=== PATIENT | female | born 1955 | race African-American/Black ===

== ENCOUNTER 2019-03-14 17:56 | Inpatient (IN) | payer OTHER ==
[~2019-03-14] VITALS: Ht 157.5 cm; Wt 78.9 kg
[~2019-03-14 17:56] MED LIST: DOCU-138 PO; FERR-63 PO; FURO-152 PO; GABA-531 PO; METF500T PO; POTA-9 PO; WARF2TAB57 PO
[2019-03-14] MEDS ORDERED: MORPHINE SULFATE 4 MG/ML CPJ (NOT FOR IM USE) IV STA (22:44)
[2019-03-14] MEDS ORDERED: ONDANSETRON HCL 4MG/2ML INJ IV STA (22:44)
[2019-03-14] MEDS ORDERED: FUROSEMIDE 40MG/4ML VIAL IV ONE (22:45)
[2019-03-14 23:07] LABS: CLARITY URINE CLOUDY (CLEAR); COLOR URINE DARK YELLOW (YELLOW); KETONES URINE TRACE (NEGATIVE); LEUKOCYTE ESTERASE URINE 1+ (NEGATIVE); NITRITE URINE NEGATIVE (NEGATIVE); OCCULT BLOOD URINE 3+ (NEGATIVE); PH URINE 5.5 (4.5-8.0); PROTEIN URINE 3+ (NEGATIVE); SPECIFIC GRAVITY URINE 1.025 (1.005-1.030)
[2019-03-14 23:11] LABS: BASOPHILS % 1.3 % (0.0-2.0); CHLORIDE 111 mEq/L (98-107); EOSINOPHILS % 9.1 % (0.0-5.0); HEMATOCRIT. 31.2 % (36.0-48.0); HEMOGLOBIN. 10.8 g/dL (12.0-16.0); LYMPHOCYTES % 34.6 % (20.0-50.0); MEAN CORPUSCULAR HEMOGLOBIN 31.4 pg (28.0-32.0); MEAN PLATELET VOLUME 8.6 fl (7.4-10.4); MONOCYTES % 12.1 % (2.0-8.0); NEUTROPHILS % 42.9 % (40.0-76.0); PLATELET 59 x1000/uL (130-400); RED BLOOD CELL COUNT 3.43 mill/uL (4.2-5.4); RED CELL DISTRIBUTION WIDTH 15.3 % (11.6-14.6)
[2019-03-14 23:21] LABS: INR 1.1; PROTHROMBIN TIME 11.4 sec (9.6-11.0)
[2019-03-14] MEDS ORDERED: CEFTRIAXONE 1 G PREMIX 50 ML IV ONE (23:30)
[2019-03-15] MEDS ORDERED: DIPHENHYDRAMINE 50MG/ML VIAL IV ONE (00:15)
[2019-03-15 04:00] VITALS: BP 137/74
[2019-03-15] MEDS ORDERED: CLONIDINE 0.1MG TABLET PO PRN (06:00)
[2019-03-15] MEDS ORDERED: DEXTROSE 50% WATER 50ML SYRINGE IV PRN (06:30)
[2019-03-15] MEDS: BLOOD SUGAR DIAGNOSTIC STRIP TEST SCH ×4 (06:45→20:39)
[2019-03-15] MEDS: INSULIN LISPRO 100 UNITS/ML SUBCUT SCH ×4 (07:15→20:43)
[2019-03-15] MEDS ORDERED: ONDANSETRON HCL 4MG/2ML INJ IV PRN (07:45)
[2019-03-15 08:00] VITALS: BP 114/73
[2019-03-15] MEDS: GABAPENTIN 300MG CAPSULE PO SCH (08:53)
[2019-03-15] MEDS: FUROSEMIDE 40MG TABLET PO SCH ×2 (08:53→17:28)
[2019-03-15] MEDS: POTASSIUM CHLORIDE 10MEQ TABLET SR PO SCH (08:53)
[2019-03-15] MEDS: SPIRONOLACTONE 50MG TABLET PO SCH (08:53)
[2019-03-15] MEDS: DOCUSATE SODIUM 100MG CAPSULE PO SCH (08:53)
[2019-03-15] MEDS: MORPHINE SULFATE 4 MG/ML CPJ (NOT FOR IM USE) IV PRN ×3 (08:54→23:12)
[2019-03-15] MEDS ORDERED: MEDICATION NOT ON FORMULARY EA (Docusate Sodium (Colace) 100 MG) PO SCH (09:00)
[2019-03-15] MEDS ORDERED: MEDICATION NOT ON FORMULARY EA (Gabapentin 300 MG) PO SCH (09:00)
[2019-03-15] MEDS ORDERED: FUROSEMIDE 20MG TABLET PO SCH (09:00)
[2019-03-15] MEDS ORDERED: MEDICATION NOT ON FORMULARY EA (Furosemide (Lasix) 20 MG) PO SCH (09:00)
[2019-03-15] MEDS ORDERED: POTASSIUM CHLORIDE 10MEQ TABLET SR PO SCH (09:00)
[2019-03-15 09:49] LABS: HEMATOCRIT 28.7 % (36.0-48.0); HEMOGLOBIN 9.8 g/dL (12.0-16.0); MEAN CORPUSCULAR HEMOGLOBIN 31.4 pg (28.0-32.0); MEAN CORPUSCULAR VOLUME 91.6 fL (81.0-99.0); PLATELET 54 x1000/uL (130-400); RED BLOOD CELL COUNT 3.13 mill/uL (4.2-5.4); RED CELL DISTRIBUTION WIDTH 15.7 % (11.6-14.6)
[2019-03-15 10:13] LABS: CHLORIDE 108 mEq/L (98-107)
[2019-03-15] MEDS ORDERED: LACTULOSE 20G/30ML UDC PO PRN (12:00)
[2019-03-15] MEDS: DIPHENHYDRAMINE 50MG/ML VIAL IV PRN ×2 (12:46→23:33)
[2019-03-15 16:00] VITALS: BP 117/54
[2019-03-15 16:44] LABS: INR 1.1; PROTHROMBIN TIME 11.8 sec (9.6-11.0)
[2019-03-15] MEDS ORDERED: WARFARIN SODIUM 2MG TABLET PO SCH (18:00)
[2019-03-15 20:00] VITALS: BP 130/67
[2019-03-15] MEDS: AMLODIPINE 5MG TABLET PO SCH (20:39)
[2019-03-15] MEDS ORDERED: ZOLPIDEM TARTRATE 5MG TABLET PO PRN (21:00)
[2019-03-16] VITALS: BP 99/63
[2019-03-16] MEDS ORDERED: CEFTRIAXONE 1 G PREMIX 50 ML IV SCH
[2019-03-16 04:00] VITALS: BP 122/57
[2019-03-16 05:57] LABS: CHLORIDE 106 mEq/L (98-107)
[2019-03-16] MEDS: BLOOD SUGAR DIAGNOSTIC STRIP TEST SCH ×3 (06:20→16:57)
[2019-03-16] MEDS: FUROSEMIDE 40MG TABLET PO SCH ×2 (06:20→16:56)
[2019-03-16] MEDS: INSULIN LISPRO 100 UNITS/ML SUBCUT SCH ×2 (06:29→11:54)
[2019-03-16 07:29] LABS: BASOPHILS % 0.8 % (0.0-2.0); HEMATOCRIT. 27.1 % (36.0-48.0); HEMOGLOBIN. 9.4 g/dL (12.0-16.0); LYMPHOCYTES % 34.7 % (20.0-50.0); MEAN CORPUSCULAR HEMOGLOBIN 31.5 pg (28.0-32.0); MEAN CORPUSCULAR VOLUME 91.1 fL (81.0-99.0); MEAN PLATELET VOLUME 9.4 fl (7.4-10.4); MONOCYTES % 14.9 % (2.0-8.0); NEUTROPHILS % 39.6 % (40.0-76.0); PLATELET 53 x1000/uL (130-400); RED BLOOD CELL COUNT 2.97 mill/uL (4.2-5.4); RED CELL DISTRIBUTION WIDTH 15.1 % (11.6-14.6)
[2019-03-16 08:00] VITALS: BP 121/53
[2019-03-16] MEDS: AMLODIPINE 5MG TABLET PO SCH (09:00)
[2019-03-16] MEDS ORDERED: SODIUM BICARBONATE 4% (2.4MEQ) 5ML VIAL IV ONE (09:24)
[2019-03-16] MEDS: POTASSIUM CHLORIDE 10MEQ TABLET SR PO SCH (09:28)
[2019-03-16] MEDS: GABAPENTIN 300MG CAPSULE PO SCH (09:28)
[2019-03-16] MEDS: DOCUSATE SODIUM 100MG CAPSULE PO SCH (09:28)
[2019-03-16] MEDS: SPIRONOLACTONE 50MG TABLET PO SCH (09:28)
[2019-03-16] MEDS: MORPHINE SULFATE 4 MG/ML CPJ (NOT FOR IM USE) IV PRN (09:32)
[2019-03-16 11:26] LABS: *AMPHETAMINES SCREEN URINE NEGATIVE (NEGATIVE); *BARBITURATES SCREEN URINE NEGATIVE (NEGATIVE); *BENZODIAZEPINES SCREEN URINE NEGATIVE (NEGATIVE); *COCAINE SCREEN URINE NEGATIVE (NEGATIVE); METHADONE URINE SCREEN NEGATIVE (NEGATIVE); OPIATES URINE SCREEN PRESUMTIVE POSITIVE (NEGATIVE); PHENCYCLIDINE URINE SCREEN NEGATIVE (NEGATIVE)
[2019-03-16 11:27] LABS: CANNABINOID URINE SCREEN NEGATIVE (NEGATIVE)
[2019-03-16] MEDS ORDERED: HYDROCODONE/ACETAMINOPHEN 5/325MG TABLET PO PRN (11:45)
[2019-03-16 12:00] VITALS: BP 118/60
[2019-03-16 16:00] VITALS: BP 111/58
[2019-03-16 17:04] VITALS: BP 111/58
== END 2019-03-16 18:05 | disposition home or self-care (01) ==
LOC: ER 17:56 → 5WST 03-15 00:43 → EDBEDREQTM 03-15 00:45 → EDBEDREQ 03-15 00:45 → ENRESERV 03-15 02:50
PROVIDERS: ADMIT Internal Medicine; ATTEND Internal Medicine
PROC: 0W9G3ZZ Drainage of Peritoneal Cavity, Percutaneous Approach (ICD-10-PCS; principal; 2019-03-16)
DX: R18.8 Other ascites (principal); E43 Unspecified severe protein-calorie malnutrition; D61.818 Other pancytopenia; B19.20 Unspecified viral hepatitis C without hepatic coma; E11.9 Type 2 diabetes mellitus without complications; D64.9 Anemia, unspecified; K74.60 Unspecified cirrhosis of liver; I10 Essential (primary) hypertension; N39.0 Urinary tract infection, site not specified; Z86.718 Personal history of other venous thrombosis and embolism; Z88.8 Allergy status to other drugs, medicaments and biological substances; Z79.899 Other long term (current) drug therapy; Z79.01 Long term (current) use of anticoagulants; Z68.31 Body mass index [BMI] 31.0-31.9, adult
CPT/HCPCS: 36415; 49083; 71045; 72170; 80048; 80305; 82962; 83880; 84484; 85027; 93005; 93970; 96365; 96375; 99285; J0696; J1200; J1940; J2270; J2405; J3490; J7050

== ENCOUNTER 2021-03-30 17:07 | Inpatient (IN) | payer MEDICAID, OTHER ==
[~2021-03-30] VITALS: Ht 157.5 cm; Wt 82.1 kg
[~2021-03-30 17:07] MED LIST changes: -GABA-531 PO; +GABA-532 PO; -WARF2TAB57 PO
[2021-03-30 20:30] LABS: BASOPHILS % 1.9 % (0.0-2.0); CHLORIDE 112 mEq/L (98-107); EOSINOPHILS % 11.7 % (0.0-5.0); HEMATOCRIT. 32.1 % (36.0-48.0); HEMOGLOBIN. 11.3 g/dL (12.0-16.0); MEAN CORPUSCULAR HEMOGLOBIN 31.4 pg (28.0-32.0); MEAN CORPUSCULAR VOLUME 89.1 fL (81.0-99.0); MEAN PLATELET VOLUME 7.8 fl (7.4-10.4); MONOCYTES % 10.1 % (2.0-8.0); NEUTROPHILS % 43.3 % (40.0-76.0); PLATELET 75 x1000/uL (130-400); RED BLOOD CELL COUNT 3.61 mill/uL (4.2-5.4); RED CELL DISTRIBUTION WIDTH 15.5 % (11.6-14.6)
[2021-03-30] MEDS ORDERED: PANTOPRAZOLE SODIUM 40 MG/VIAL IV ONE (23:30)
[2021-03-31] MEDS ORDERED: ONDANSETRON HCL 4MG/2ML INJ IV PRN (02:30)
[2021-03-31] MEDS: MORPHINE SULFATE 2 MG/ML CPJ (NOT FOR IM USE) IV PRN ×3 (03:32→20:41)
[2021-03-31 04:30] VITALS: BP 141/68
[2021-03-31] MEDS ORDERED: ENOXAPARIN 40MG/0.4ML SYR SUBCUT SCH (09:00)
[2021-03-31] MEDS: PANTOPRAZOLE SODIUM 40 MG/VIAL IV SCH (12:20)
[2021-03-31] MEDS: FUROSEMIDE 40MG/4ML VIAL IVP SCH (12:23)
[2021-03-31] MEDS: SPIRONOLACTONE 50MG TABLET PO SCH (12:23)
[2021-03-31] MEDS: INSULIN LISPRO 100 UNITS/ML SUBCUT SCH ×3 (12:40→21:20)
[2021-03-31] MEDS: IPRATROPIUM/ALBUTEROL 0.5-3(2.5)MG/3ML NEB HHN SCH ×3 (12:43→21:50)
[2021-03-31 12:44] VITALS: BP 121/79
[2021-03-31] MEDS ORDERED: KETOROLAC 15MG/ML VIAL IV NR (12:45)
[2021-03-31] MEDS ORDERED: ACETAMINOPHEN 325MG TABLET PO PRN (12:45)
[2021-03-31] MEDS ORDERED: DEXTROSE 50% WATER 50ML SYRINGE IV PRN ×2 (12:45)
[2021-03-31] MEDS ORDERED: MAGNESIUM/ALUMINUM HYDROXIDE/SIMETHICONE 30ML UDC PO PRN (12:45)
[2021-03-31] MEDS ORDERED: CLONIDINE 0.1MG TABLET PO PRN (12:45)
[2021-03-31] MEDS: BLOOD SUGAR DIAGNOSTIC STRIP TEST SCH ×3 (13:13→21:19)
[2021-03-31] MEDS ORDERED: MAGNESIUM CITRATE 300ML SOLUTION PO NR (14:30)
[2021-03-31] MEDS: DOCUSATE SODIUM 100MG CAPSULE PO SCH ×2 (14:51→17:00)
[2021-03-31 16:17] VITALS: BP 156/84
[2021-03-31] MEDS: METRONIDAZOLE 500 MG PREMIX 100 ML IV SCH (17:30)
[2021-03-31] MEDS: LEVOFLOXACIN 500MG PREMIX 100 ML IV SCH (17:30)
[2021-03-31 20:00] VITALS: BP 141/62
[2021-03-31] MEDS: METOCLOPRAMIDE HCL 10MG/2ML VIAL IV SCH (20:13)
[2021-03-31] MEDS ORDERED: LACTULOSE 20G/30ML UDC PO NR (21:00)
[2021-03-31] MEDS ORDERED: BISACODYL 10MG SUPP PR NR (21:00)
[2021-03-31] MEDS: PROPRANOLOL HCL 10MG TABLET PO SCH (21:19)
[2021-04-01] MEDS: METOCLOPRAMIDE HCL 10MG/2ML VIAL IV SCH ×4 (01:18→17:58)
[2021-04-01] MEDS: METRONIDAZOLE 500 MG PREMIX 100 ML IV SCH ×4 (01:18→20:45)
[2021-04-01] MEDS: IPRATROPIUM/ALBUTEROL 0.5-3(2.5)MG/3ML NEB HHN SCH ×6 (01:30→20:29)
[2021-04-01 04:00] VITALS: BP 119/69
[2021-04-01] MEDS: INSULIN LISPRO 100 UNITS/ML SUBCUT SCH ×4 (06:16→21:00)
[2021-04-01] MEDS: BLOOD SUGAR DIAGNOSTIC STRIP TEST SCH ×4 (06:16→20:45)
[2021-04-01 08:00] VITALS: BP 140/53
[2021-04-01 08:13] LABS: HEMATOCRIT. 30.4 % (36.0-48.0); HEMOGLOBIN. 10.3 g/dL (12.0-16.0); MEAN CORPUSCULAR HEMOGLOBIN 30.5 pg (28.0-32.0); MEAN CORPUSCULAR VOLUME 90.2 fL (81.0-99.0); MEAN PLATELET VOLUME 9.3 fl (7.4-10.4); PLATELET 72 x1000/uL (130-400); RED BLOOD CELL COUNT 3.37 mill/uL (4.2-5.4); RED CELL DISTRIBUTION WIDTH 15.2 % (11.6-14.6)
[2021-04-01 08:32] LABS: CHLORIDE 111 mEq/L (98-107)
[2021-04-01 08:47] LABS: LDL CHOLESTEROL 72 mg/dL (5-100); PHOSPHORUS 2.9 mg/dL (2.5-4.9)
[2021-04-01 08:51] LABS: HDL CHOLESTEROL 62 mg/dL (40-59)
[2021-04-01] MEDS ORDERED: POLYETHYLENE GLYCOL 3350 (17GM) 1 DOSE PACK PO ONE (09:15)
[2021-04-01] MEDS: DOCUSATE SODIUM 100MG CAPSULE PO SCH ×2 (09:16→17:00)
[2021-04-01] MEDS: SPIRONOLACTONE 50MG TABLET PO SCH (09:17)
[2021-04-01] MEDS: PANTOPRAZOLE SODIUM 40 MG/VIAL IV SCH (09:17)
[2021-04-01] MEDS: FUROSEMIDE 40MG/4ML VIAL IVP SCH (09:17)
[2021-04-01] MEDS: PROPRANOLOL HCL 10MG TABLET PO SCH ×2 (09:18→20:45)
[2021-04-01] MEDS ORDERED: SODIUM BICARBONATE 4% (2.4MEQ) 5ML VIAL IV ONE (09:48)
[2021-04-01] MEDS: LEVOFLOXACIN 500MG PREMIX 100 ML IV SCH (11:56)
[2021-04-01] MEDS: MORPHINE SULFATE 2 MG/ML CPJ (NOT FOR IM USE) IV PRN ×2 (11:56→23:48)
[2021-04-01 12:00] VITALS: BP 130/67
[2021-04-01] MEDS: LACTULOSE 20G/30ML UDC PO SCH ×2 (14:00→20:45)
[2021-04-01 16:00] VITALS: BP 120/50
[2021-04-01 20:00] VITALS: BP 120/56
[2021-04-02] VITALS: BP 106/58
[2021-04-02 00:08] LABS: PLATELET ESTIMATE DECREASED
[2021-04-02 04:00] VITALS: BP 115/80
[2021-04-02] MEDS: IPRATROPIUM/ALBUTEROL 0.5-3(2.5)MG/3ML NEB HHN SCH ×5 (04:20→15:44)
[2021-04-02] MEDS: LACTULOSE 20G/30ML UDC PO SCH ×2 (04:49→14:00)
[2021-04-02] MEDS: BLOOD SUGAR DIAGNOSTIC STRIP TEST SCH ×2 (05:24→12:21)
[2021-04-02] MEDS: METRONIDAZOLE 500 MG PREMIX 100 ML IV SCH ×2 (05:24→14:04)
[2021-04-02] MEDS: METOCLOPRAMIDE HCL 10MG/2ML VIAL IV SCH ×2 (05:24→12:22)
[2021-04-02] MEDS: INSULIN LISPRO 100 UNITS/ML SUBCUT SCH ×2 (05:36→12:24)
[2021-04-02] MEDS ORDERED: POLYETHYLENE GLYCOL 3350 (17GM) 1 DOSE PACK PO SCH (09:00)
[2021-04-02] MEDS: DOCUSATE SODIUM 100MG CAPSULE PO SCH (09:39)
[2021-04-02] MEDS: SPIRONOLACTONE 50MG TABLET PO SCH (09:40)
[2021-04-02] MEDS: FUROSEMIDE 40MG/4ML VIAL IVP SCH (09:42)
[2021-04-02] MEDS: HYDROCODONE/ACETAMINOPHEN 5/325MG TABLET PO PRN ×2 (09:42→09:54)
[2021-04-02] MEDS: PANTOPRAZOLE SODIUM 40 MG/VIAL IV SCH (09:42)
[2021-04-02] MEDS: PROPRANOLOL HCL 10MG TABLET PO SCH (09:42)
[2021-04-02 09:48] LABS: BASOPHILS % 0.3 % (0.0-2.0); EOSINOPHILS % 11.7 % (0.0-5.0); HEMATOCRIT. 29.5 % (36.0-48.0); HEMOGLOBIN. 10.3 g/dL (12.0-16.0); LYMPHOCYTES % 35.5 % (20.0-50.0); MEAN CORPUSCULAR HEMOGLOBIN 31.3 pg (28.0-32.0); MEAN PLATELET VOLUME 8.8 fl (7.4-10.4); MONOCYTES % 12.2 % (2.0-8.0); NEUTROPHILS % 40.3 % (40.0-76.0); PLATELET 68 x1000/uL (130-400); RED BLOOD CELL COUNT 3.27 mill/uL (4.2-5.4); RED CELL DISTRIBUTION WIDTH 15.4 % (11.6-14.6)
[2021-04-02 09:54] VITALS: BP 113/57
[2021-04-02 10:13] LABS: CHLORIDE 111 mEq/L (98-107)
[2021-04-02] MEDS: LEVOFLOXACIN 500MG PREMIX 100 ML IV SCH (12:22)
== END 2021-04-02 17:25 | disposition left against medical advice (07) | DRG 143 ==
LOC: ER 17:07 → 8WST 03-31 00:08 → ENRESERV 03-31 01:38
PROVIDERS: ADMIT Internal Medicine; ATTEND Internal Medicine
PROC: 0W993ZZ Drainage of Right Pleural Cavity, Percutaneous Approach (ICD-10-PCS; principal; 2021-04-01)
DX: J90 Pleural effusion, not elsewhere classified (principal); J96.00 Acute respiratory failure, unspecified whether with hypoxia or hypercapnia; K29.81 Duodenitis with bleeding; I85.10 Secondary esophageal varices without bleeding; D69.6 Thrombocytopenia, unspecified; E87.70 Fluid overload, unspecified; K76.6 Portal hypertension; I10 Essential (primary) hypertension; I86.4 Gastric varices; K52.9 Noninfective gastroenteritis and colitis, unspecified; K56.41 Fecal impaction; B19.20 Unspecified viral hepatitis C without hepatic coma; D64.9 Anemia, unspecified; K74.69 Other cirrhosis of liver; E11.9 Type 2 diabetes mellitus without complications; N20.0 Calculus of kidney; Z20.822 Contact with and (suspected) exposure to COVID-19; R18.8 Other ascites; L40.9 Psoriasis, unspecified; R16.1 Splenomegaly, not elsewhere classified; Z86.16 Personal history of COVID-19; Z90.49 Acquired absence of other specified parts of digestive tract; Z88.8 Allergy status to other drugs, medicaments and biological substances
CPT/HCPCS: 32555; 36415; 71045; 74176; 76705; 80048; 80053; 80061; 80076; 82962; 83036; 83615; 83735; 83880; 84100; 84443; 84484; 85025; 86850; 86900; 87426; 88108; 93005; 93306; 93970; 94640; 97162; 97166; 99285; C1893; C9113; J1940; J1956; J2270; J2405; J2765; J3490; J7040

== ENCOUNTER 2021-10-27 11:46 | Inpatient (IN) | payer MEDICARE, MEDICAID ==
[~2021-10-27] VITALS: Ht 160 cm; Wt 89.4 kg
[2021-10-27] MEDS ORDERED: FUROSEMIDE 40MG/4ML VIAL IV ONE (16:00)
[2021-10-27 17:13] LABS: BASOPHILS % 0.7 % (0.0-2.0); HEMATOCRIT. 30.1 % (36.0-48.0); LYMPHOCYTES % 30.6 % (20.0-50.0); MEAN CORPUSCULAR HEMOGLOBIN 29.9 pg (28.0-32.0); MEAN CORPUSCULAR VOLUME 90.3 fL (81.0-99.0); MEAN PLATELET VOLUME 8.2 fl (7.4-10.4); MONOCYTES % 10.4 % (2.0-8.0); NEUTROPHILS % 53.3 % (40.0-76.0); PLATELET 54 x1000/uL (130-400); RED BLOOD CELL COUNT 3.34 mill/uL (4.2-5.4); RED CELL DISTRIBUTION WIDTH 16.4 % (11.6-14.6)
[2021-10-27 17:20] LABS: CHLORIDE 109 mEq/L (98-107)
[2021-10-27 17:24] LABS: ETHANOL BLOOD < 10 mg/dL
[2021-10-27] MEDS ORDERED: ACETAMINOPHEN 325MG TABLET PO ONE (18:00)
[2021-10-27] MEDS ORDERED: MAGNESIUM/ALUMINUM HYDROXIDE/SIMETHICONE 30ML UDC PO PRN (20:15)
[2021-10-27] MEDS ORDERED: ONDANSETRON HCL 4MG/2ML INJ IV PRN (20:15)
[2021-10-27] MEDS ORDERED: NITROGLYCERIN 0.4MG TABLET SL SL PRN (20:15)
[2021-10-27] MEDS ORDERED: GUAIFENESIN 200MG/10ML SUGAR FREE UDC PO PRN (20:15)
[2021-10-27] MEDS ORDERED: ACETAMINOPHEN 325MG TABLET PO PRN ×2 (20:15)
[2021-10-27] MEDS ORDERED: IPRATROPIUM/ALBUTEROL 0.5-3(2.5)MG/3ML NEB NEB PRN (20:15)
[2021-10-27] MEDS ORDERED: CLONIDINE 0.1MG TABLET PO PRN (20:15)
[2021-10-27] MEDS ORDERED: DOCUSATE SODIUM 100MG CAPSULE PO PRN (20:15)
[2021-10-27 20:31] LABS: TOTAL IRON BINDING CAPACITY 271 ug/dL (250-450)
[2021-10-27] MEDS ORDERED: NALOXONE HCL 0.4MG/ML VIAL IV PRN (20:45)
[2021-10-27 20:48] LABS: FOLIC ACID (FOLATE) SERUM 19.3 ng/mL (>5.38)
[2021-10-27] MEDS ORDERED: ZOLPIDEM TARTRATE 5MG TABLET PO PRN (21:00)
[2021-10-27 22:30] VITALS: BP 172/75
[2021-10-27] MEDS: SUCRALFATE 1 G/10 ML UDC PO SCH (22:38)
[2021-10-27] MEDS: TRAMADOL 50MG TABLET PO PRN (22:38)
[2021-10-27] MEDS: FAMOTIDINE 20MG TABLET PO SCH (22:38)
[2021-10-27] MEDS: SPIRONOLACTONE 25MG TABLET PO SCH (22:40)
[2021-10-27 23:50] LABS: *AMPHETAMINES SCREEN URINE NEGATIVE (NEGATIVE); *BARBITURATES SCREEN URINE NEGATIVE (NEGATIVE); *BENZODIAZEPINES SCREEN URINE NEGATIVE (NEGATIVE); *COCAINE SCREEN URINE NEGATIVE (NEGATIVE); CANNABINOID URINE SCREEN NEGATIVE (NEGATIVE); METHADONE URINE SCREEN NEGATIVE (NEGATIVE); OPIATES URINE SCREEN PRESUMTIVE POSITIVE (NEGATIVE); PHENCYCLIDINE URINE SCREEN NEGATIVE (NEGATIVE)
[2021-10-27 23:58] LABS: CREATINE KINASE 89 IU/L (26-192)
[2021-10-28] VITALS (7 sets, daily range): BP systolic 138–168; BP diastolic 63–85
[2021-10-28] MEDS ORDERED: SPIR25TA6 PO (00:20)
[2021-10-28] MEDS ORDERED: LACT10SO6 MT (00:20)
[2021-10-28] MEDS ORDERED: AMLO5TAB88 PO (00:20)
[2021-10-28] MEDS ORDERED: PANT40TA51 PO (00:20)
[2021-10-28] MEDS ORDERED: OXYC-582 PO (00:20)
[2021-10-28] MEDS ORDERED: ONDA4TAB11 PO (00:20)
[2021-10-28] MEDS ORDERED: *PATIENT'S OWN MEDICATION STORAGE XX SCH (00:45)
[2021-10-28] MEDS: FUROSEMIDE 40MG/4ML VIAL IVP SCH ×3 (00:47→20:53)
[2021-10-28] MEDS: TRAMADOL 50MG TABLET PO PRN (04:44)
[2021-10-28 07:13] LABS: BASOPHILS % 0.5 % (0.0-2.0); EOSINOPHILS % 6.5 % (0.0-5.0); HEMATOCRIT. 24.9 % (36.0-48.0); HEMOGLOBIN. 8.5 g/dL (12.0-16.0); LYMPHOCYTES % 29.7 % (20.0-50.0); MEAN CORPUSCULAR HEMOGLOBIN 30.3 pg (28.0-32.0); MEAN CORPUSCULAR VOLUME 88.7 fL (81.0-99.0); MEAN PLATELET VOLUME 8.4 fl (7.4-10.4); NEUTROPHILS % 50.3 % (40.0-76.0); RED BLOOD CELL COUNT 2.81 mill/uL (4.2-5.4); RED CELL DISTRIBUTION WIDTH 16.1 % (11.6-14.6)
[2021-10-28 07:26] LABS: CHLORIDE 109 mEq/L (98-107)
[2021-10-28 07:34] LABS: CREATINE KINASE 77 IU/L (26-192)
[2021-10-28 07:37] LABS: PHOSPHORUS 3.1 mg/dL (2.5-4.9)
[2021-10-28] MEDS: FAMOTIDINE 20MG TABLET PO SCH ×2 (08:23→20:52)
[2021-10-28] MEDS: SUCRALFATE 1 G/10 ML UDC PO SCH ×3 (08:23→20:53)
[2021-10-28] MEDS: SPIRONOLACTONE 25MG TABLET PO SCH ×2 (08:34→20:52)
[2021-10-28] MEDS ORDERED: MAGNESIUM 2 G PREMIX 50 ML IV NR (18:00)
[2021-10-28] MEDS: KETOROLAC 30MG/ML VIAL IV PRN (20:58)
[2021-10-29 04:00] VITALS: BP 126/69
[2021-10-29] MEDS: KETOROLAC 30MG/ML VIAL IV PRN ×3 (06:04→21:27)
[2021-10-29 07:08] LABS: PARTIAL THROMBOPLASTIN TIME 27.9 sec (23.4-31.0); PROTHROMBIN TIME 11.2 sec (9.6-11.0)
[2021-10-29 08:00] VITALS: BP 155/74
[2021-10-29] MEDS: FUROSEMIDE 40MG/4ML VIAL IVP SCH ×2 (09:45→20:59)
[2021-10-29] MEDS: SUCRALFATE 1 G/10 ML UDC PO SCH ×5 (09:45→21:00)
[2021-10-29] MEDS: FAMOTIDINE 20MG TABLET PO SCH ×2 (09:45→20:59)
[2021-10-29] MEDS: SPIRONOLACTONE 25MG TABLET PO SCH ×2 (09:46→20:58)
[2021-10-29 12:00] VITALS: BP 146/75
[2021-10-29 16:00] VITALS: BP 137/63
[2021-10-29 20:00] VITALS: BP 137/71
[2021-10-30] VITALS: BP 111/50
[2021-10-30 04:00] VITALS: BP 147/74
[2021-10-30] MEDS: SUCRALFATE 1 G/10 ML UDC PO SCH (06:21)
[2021-10-30 08:00] VITALS: BP_SYST 100; BP_SYST 146; BP_DIAS 50; BP_DIAS 62
[2021-10-30] MEDS: FAMOTIDINE 20MG TABLET PO SCH ×2 (08:39→21:06)
[2021-10-30] MEDS: SPIRONOLACTONE 25MG TABLET PO SCH ×2 (08:40→21:07)
[2021-10-30] MEDS: FUROSEMIDE 40MG/4ML VIAL IVP SCH (08:40)
[2021-10-30] MEDS ORDERED: ASPIRIN/SOD BICARB/CITRIC ACID 324MG TAB EFF PO NR (09:30)
[2021-10-30 12:00] VITALS: BP 152/70
[2021-10-30 13:39] LABS: CHLORIDE 108 mEq/L (98-107)
[2021-10-30 16:00] VITALS: BP 137/74
[2021-10-30 20:00] VITALS: BP 149/64
[2021-10-30] MEDS: FUROSEMIDE 20MG/2ML VIAL IVP SCH (21:06)
[2021-10-30] MEDS: KETOROLAC 30MG/ML VIAL IV PRN (21:18)
[2021-10-31 00:16] VITALS: BP 171/66
[2021-10-31 04:00] VITALS: BP 130/67
[2021-10-31 08:00] VITALS: BP 151/83
[2021-10-31] MEDS: SPIRONOLACTONE 25MG TABLET PO SCH (09:20)
[2021-10-31] MEDS: FAMOTIDINE 20MG TABLET PO SCH (09:20)
[2021-10-31] MEDS: FUROSEMIDE 20MG/2ML VIAL IVP SCH (09:21)
[2021-10-31 09:22] LABS: PLATELET 47 x1000/uL (130-400)
[2021-10-31] MEDS ORDERED: AMLODIPINE 5MG TABLET PO SCH (10:45)
[2021-10-31 10:46] VITALS: BP 151/83
== END 2021-10-31 15:02 | disposition home or self-care (01) | DRG 194 ==
LOC: ER 11:46 → 8WST 18:06 → ENRESERV 20:14
PROVIDERS: ADMIT Internal Medicine; ATTEND Internal Medicine
PROC: 0W993ZZ Drainage of Right Pleural Cavity, Percutaneous Approach (ICD-10-PCS; principal; 2021-10-29)
DX: I11.0 Hypertensive heart disease with heart failure (principal); J96.01 Acute respiratory failure with hypoxia; E44.0 Moderate protein-calorie malnutrition; D69.6 Thrombocytopenia, unspecified; R18.8 Other ascites; D63.8 Anemia in other chronic diseases classified elsewhere; K74.60 Unspecified cirrhosis of liver; I50.33 Acute on chronic diastolic (congestive) heart failure; J45.909 Unspecified asthma, uncomplicated; Z20.822 Contact with and (suspected) exposure to COVID-19; E11.9 Type 2 diabetes mellitus without complications; E83.42 Hypomagnesemia; Z86.16 Personal history of COVID-19; Z68.34 Body mass index [BMI] 34.0-34.9, adult; Z88.8 Allergy status to other drugs, medicaments and biological substances; Z79.891 Long term (current) use of opiate analgesic; Z87.01 Personal history of pneumonia (recurrent)
CPT/HCPCS: 32555; 36415; 71045; 80053; 80305; 80320; 82550; 82553; 82607; 82746; 83540; 83550; 83615; 83735; 83880; 83986; 84100; 84484; 85025; 87426; 88108; 93005; 93306; 93970; 97162; 99285; C1893; J1885; J1940; J3475; J7070; G0480

== ENCOUNTER 2022-03-15 11:15 | Inpatient (IN) | payer MEDICARE, MEDICAID ==
[~2022-03-15] VITALS: Ht 157.5 cm; Wt 80.4 kg
[~2022-03-15 11:15] MED LIST changes: +AMLO5TAB88 PO; +CARI250T PO; +CHOL2000 PO; +CLOB15CR4 TP; +DIPH-1042 PO; +LACT10SO6 MT; +LOSA100T32 PO; +ONDA4TAB11 PO; +OXYC-582 PO; +PANT40TA51 PO; +SERT-422 PO; +SPIR25TA6 PO; +TC025C15 TP
[2022-03-15] MEDS ORDERED: IPRATROPIUM/ALBUTEROL 0.5-3(2.5)MG/3ML NEB HHN ONE (11:45)
[2022-03-15] MEDS ORDERED: IPRATROPIUM/ALBUTEROL 0.5-3(2.5)MG/3ML NEB HHN NR (12:00)
[2022-03-15 12:04] LABS: CHLORIDE 102 mEq/L (98-107)
[2022-03-15 12:08] LABS: ETHANOL BLOOD < 10 mg/dL
[2022-03-15 12:09] LABS: C REACTIVE PROTEIN QUANT 7.4 mg/L (0.0-3.0); HEMATOCRIT. 31.3 % (36.0-48.0); HEMOGLOBIN. 10.6 g/dL (12.0-16.0); MEAN CORPUSCULAR HEMOGLOBIN 30.8 pg (28.0-32.0); MEAN CORPUSCULAR VOLUME 91.2 fL (81.0-99.0); MEAN PLATELET VOLUME 9.1 fl (7.4-10.4); PLATELET 81 x1000/uL (130-400); RED BLOOD CELL COUNT 3.44 mill/uL (4.2-5.4); RED CELL DISTRIBUTION WIDTH 14.8 % (11.6-14.6)
[2022-03-15 12:44] LABS: CLARITY URINE CLOUDY (CLEAR); COLOR URINE YELLOW (YELLOW); KETONES URINE NEGATIVE (NEGATIVE); LEUKOCYTE ESTERASE URINE 3+ (NEGATIVE); NITRITE URINE NEGATIVE (NEGATIVE); OCCULT BLOOD URINE TRACE (NEGATIVE); PH URINE 5.5 (4.5-8.0); PROTEIN URINE TRACE (NEGATIVE); SPECIFIC GRAVITY URINE 1.015 (1.005-1.030); UROBILINOGEN URINE 0.2 E.U./dL (0.2-1.0)
[2022-03-15 13:00] LABS: *AMPHETAMINES SCREEN URINE NEGATIVE (NEGATIVE)
[2022-03-15 13:01] LABS: *BARBITURATES SCREEN URINE NEGATIVE (NEGATIVE); *BENZODIAZEPINES SCREEN URINE NEGATIVE (NEGATIVE); *COCAINE SCREEN URINE NEGATIVE (NEGATIVE); METHADONE URINE SCREEN NEGATIVE (NEGATIVE)
[2022-03-15 13:02] LABS: CANNABINOID URINE SCREEN NEGATIVE (NEGATIVE)
[2022-03-15 13:08] LABS: PHENCYCLIDINE URINE SCREEN NEGATIVE (NEGATIVE)
[2022-03-15 13:09] LABS: OPIATES URINE SCREEN PRESUMTIVE POSITIVE (NEGATIVE)
[2022-03-15 13:21] LABS: PROTHROMBIN TIME 10.9 sec (9.6-11.0)
[2022-03-15] MEDS ORDERED: CEFTRIAXONE 1 G PREMIX 50 ML IV NR (13:30)
[2022-03-15 13:37] LABS: PLATELET ESTIMATE DECREASED
[2022-03-15] MEDS ORDERED: SODIUM CHLORIDE 0.9% 500 ML IV ONE (13:45)
[2022-03-15] MEDS ORDERED: ALBUMIN HUMAN 25GM/100ML (25%) IV ONE (13:45)
[2022-03-15] MEDS ORDERED: AZITHROMYCIN 250 MG in DEXT 5% WATER 250 ML IV SCH (14:00)
[2022-03-15 16:57] VITALS: BP 120/61
[2022-03-15 17:00] VITALS: BP 120/61
[2022-03-15 18:00] VITALS: BP 120/61
[2022-03-15] MEDS ORDERED: CEFTRIAXONE 1 G PREMIX 50 ML IV SCH (18:00)
[2022-03-15] MEDS ORDERED: CLONIDINE 0.1MG TABLET PO PRN (18:00)
[2022-03-15] MEDS ORDERED: NALOXONE HCL 0.4MG/ML VIAL IV PRN (18:45)
[2022-03-15] MEDS: INSULIN LISPRO 100 UNITS/ML SUBCUT SCH ×2 (19:14→21:00)
[2022-03-15] MEDS: SODIUM CHLORIDE 0.9% 1,000 ML IV SCH (19:31)
[2022-03-15] MEDS: PANTOPRAZOLE SODIUM 40 MG/VIAL IV SCH (19:55)
[2022-03-15] MEDS: BLOOD SUGAR DIAGNOSTIC STRIP TEST SCH (20:08)
[2022-03-15 20:20] VITALS: BP 128/75
[2022-03-15] MEDS: DEXTROSE 50% WATER 50ML SYRINGE IV PRN (20:38)
[2022-03-15] MEDS ORDERED: GABAPENTIN 300MG CAPSULE PO SCH (21:00)
[2022-03-15] MEDS: FERROUS SULFATE 325MG TABLET PO SCH (21:43)
[2022-03-15] MEDS: MORPHINE SULFATE 2 MG/ML CPJ (NOT FOR IM USE) IV PRN (21:45)
[2022-03-15] MEDS: GABAPENTIN 100MG CAPSULE PO SCH (22:13)
[2022-03-15 22:28] VITALS: BP 129/70
[2022-03-15] MEDS: DIPHENHYDRAMINE 25MG CAPSULE PO PRN (23:36)
[2022-03-16] VITALS (17 sets, daily range): BP systolic 92–138; BP diastolic 45–81
[2022-03-16] MEDS: HYDROCODONE/ACETAMINOPHEN 10/325MG TABLET PO PRN ×4 (04:42→23:28)
[2022-03-16] MEDS: BLOOD SUGAR DIAGNOSTIC STRIP TEST SCH ×4 (06:38→21:21)
[2022-03-16 07:12] LABS: HEMATOCRIT 27.3 % (36.0-48.0); HEMOGLOBIN 9.4 g/dL (12.0-16.0); MEAN CORPUSCULAR HEMOGLOBIN 30.7 pg (28.0-32.0); MEAN CORPUSCULAR VOLUME 89.7 fL (81.0-99.0); PLATELET 79 x1000/uL (130-400); RED BLOOD CELL COUNT 3.04 mill/uL (4.2-5.4); RED CELL DISTRIBUTION WIDTH 15.2 % (11.6-14.6)
[2022-03-16] MEDS: SODIUM CHLORIDE 0.9% 1,000 ML IV SCH ×2 (07:47→23:04)
[2022-03-16] MEDS: PANTOPRAZOLE SODIUM 40 MG/VIAL IV SCH (07:47)
[2022-03-16] MEDS: FERROUS SULFATE 325MG TABLET PO SCH ×2 (07:47→17:26)
[2022-03-16] MEDS: GABAPENTIN 100MG CAPSULE PO SCH ×3 (07:47→17:18)
[2022-03-16] MEDS: MORPHINE SULFATE 2 MG/ML CPJ (NOT FOR IM USE) IV PRN (07:49)
[2022-03-16] MEDS: INSULIN LISPRO 100 UNITS/ML SUBCUT SCH ×4 (08:00→21:00)
[2022-03-16] MEDS ORDERED: PANTOPRAZOLE 40MG DR TABLET PO SCH (09:00)
[2022-03-16] MEDS ORDERED: LOSARTAN POTASSIUM 100 MG TABLET PO SCH (09:00)
[2022-03-16] MEDS ORDERED: SPIRONOLACTONE 25MG TABLET PO SCH (09:00)
[2022-03-16] MEDS ORDERED: METFORMIN HCL 500MG TABLET PO SCH (09:00)
[2022-03-16] MEDS: AMLODIPINE 5MG TABLET PO SCH (09:00)
[2022-03-16] MEDS ORDERED: POTASSIUM CHLORIDE 10MEQ TABLET SR PO SCH (09:00)
[2022-03-16] MEDS ORDERED: FUROSEMIDE 40MG TABLET PO SCH (09:00)
[2022-03-16] MEDS: DOCUSATE SODIUM 100MG CAPSULE PO SCH (09:00)
[2022-03-16] MEDS: SERTRALINE HCL 50MG TABLET PO SCH (09:46)
[2022-03-16] MEDS: CLOBETASOL 0.05 % CREAM 15GM TOP SCH ×2 (09:47→17:19)
[2022-03-16] MEDS: TRIAMCINOLONE ACETONIDE 0.025% CREAM 15GM TOP SCH ×2 (09:47→17:19)
[2022-03-16] MEDS: CEFTRIAXONE 1,000 MG in DEXTROSE 5% WATER 50 ML IV SCH (13:07)
[2022-03-16] MEDS: GUAIFENESIN 600MG ER TABLET PO SCH (14:14)
[2022-03-16] MEDS: AZITHROMYCIN 500 MG in DEXT 5% WATER 250 ML IV SCH (14:15)
[2022-03-16] MEDS: IPRATROPIUM/ALBUTEROL 0.5-3(2.5)MG/3ML NEB HHN SCH ×2 (17:46→19:56)
[2022-03-17] VITALS (11 sets, daily range): BP systolic 112–153; BP diastolic 53–72
[2022-03-17] MEDS: IPRATROPIUM/ALBUTEROL 0.5-3(2.5)MG/3ML NEB HHN SCH ×6 (00:07→20:20)
[2022-03-17] MEDS: BLOOD SUGAR DIAGNOSTIC STRIP TEST SCH ×4 (06:34→21:00)
[2022-03-17] MEDS: INSULIN LISPRO 100 UNITS/ML SUBCUT SCH ×4 (08:00→21:00)
[2022-03-17] MEDS: GUAIFENESIN 600MG ER TABLET PO SCH ×2 (09:00→21:00)
[2022-03-17] MEDS: TRIAMCINOLONE ACETONIDE 0.025% CREAM 15GM TOP SCH ×2 (09:00→17:22)
[2022-03-17] MEDS: CLOBETASOL 0.05 % CREAM 15GM TOP SCH ×2 (09:00→17:22)
[2022-03-17] MEDS: SERTRALINE HCL 50MG TABLET PO SCH (09:53)
[2022-03-17] MEDS: GABAPENTIN 100MG CAPSULE PO SCH ×3 (09:53→17:21)
[2022-03-17] MEDS: DOCUSATE SODIUM 100MG CAPSULE PO SCH (09:53)
[2022-03-17] MEDS: FERROUS SULFATE 325MG TABLET PO SCH ×2 (09:53→17:24)
[2022-03-17] MEDS: PANTOPRAZOLE SODIUM 40 MG/VIAL IV SCH (09:53)
[2022-03-17] MEDS: AMLODIPINE 5MG TABLET PO SCH (09:54)
[2022-03-17] MEDS: SODIUM CHLORIDE 0.9% 1,000 ML IV SCH ×2 (10:00→23:43)
[2022-03-17] MEDS ORDERED: SODIUM BICARBONATE 4% (2.4MEQ) 5ML VIAL IV ONE (10:46)
[2022-03-17] MEDS: HYDROCODONE/ACETAMINOPHEN 10/325MG TABLET PO PRN ×2 (12:39→22:17)
[2022-03-17] MEDS: CEFTRIAXONE 1,000 MG in DEXTROSE 5% WATER 50 ML IV SCH (13:29)
[2022-03-17 14:28] LABS: CHLORIDE 110 mEq/L (98-107)
[2022-03-17] MEDS: AZITHROMYCIN 500 MG in DEXT 5% WATER 250 ML IV SCH (15:16)
[2022-03-17 16:13] LABS: BASOPHILS % 0.8 % (0.0-2.0); EOSINOPHILS % 6.3 % (0.0-5.0); HEMATOCRIT. 27.4 % (36.0-48.0); HEMOGLOBIN. 9.2 g/dL (12.0-16.0); LYMPHOCYTES % 19.2 % (20.0-50.0); MEAN CORPUSCULAR HEMOGLOBIN 31.1 pg (28.0-32.0); MEAN CORPUSCULAR VOLUME 92.6 fL (81.0-99.0); MEAN PLATELET VOLUME 9.5 fl (7.4-10.4); MONOCYTES % 11.5 % (2.0-8.0); NEUTROPHILS % 62.2 % (40.0-76.0); PLATELET 78 x1000/uL (130-400); RED BLOOD CELL COUNT 2.96 mill/uL (4.2-5.4); RED CELL DISTRIBUTION WIDTH 15.3 % (11.6-14.6)
[2022-03-17] MEDS: ONDANSETRON 4MG ODT PO PRN (22:16)
[2022-03-18] VITALS (13 sets, daily range): BP systolic 114–155; BP diastolic 55–86
[2022-03-18] MEDS: IPRATROPIUM/ALBUTEROL 0.5-3(2.5)MG/3ML NEB HHN SCH ×6 (01:40→21:34)
[2022-03-18 05:52] LABS: BASOPHILS % 0.3 % (0.0-2.0); EOSINOPHILS % 3.8 % (0.0-5.0); HEMATOCRIT. 27.3 % (36.0-48.0); HEMOGLOBIN. 9.1 g/dL (12.0-16.0); LYMPHOCYTES % 8.4 % (20.0-50.0); MEAN CORPUSCULAR HEMOGLOBIN 30.6 pg (28.0-32.0); MEAN CORPUSCULAR VOLUME 91.4 fL (81.0-99.0); MEAN PLATELET VOLUME 9.7 fl (7.4-10.4); MONOCYTES % 6.6 % (2.0-8.0); NEUTROPHILS % 80.9 % (40.0-76.0); PLATELET 80 x1000/uL (130-400); RED BLOOD CELL COUNT 2.98 mill/uL (4.2-5.4); RED CELL DISTRIBUTION WIDTH 15.1 % (11.6-14.6)
[2022-03-18 05:58] LABS: CHLORIDE 110 mEq/L (98-107)
[2022-03-18] MEDS: BLOOD SUGAR DIAGNOSTIC STRIP TEST SCH ×4 (06:31→21:00)
[2022-03-18] MEDS: INSULIN LISPRO 100 UNITS/ML SUBCUT SCH ×4 (08:00→21:00)
[2022-03-18] MEDS: GUAIFENESIN 600MG ER TABLET PO SCH ×2 (09:00→21:00)
[2022-03-18] MEDS: TRIAMCINOLONE ACETONIDE 0.025% CREAM 15GM TOP SCH ×2 (09:00→17:00)
[2022-03-18] MEDS: CLOBETASOL 0.05 % CREAM 15GM TOP SCH ×2 (09:00→17:00)
[2022-03-18] MEDS: DOCUSATE SODIUM 100MG CAPSULE PO SCH (10:46)
[2022-03-18] MEDS: SERTRALINE HCL 50MG TABLET PO SCH (10:46)
[2022-03-18] MEDS: PANTOPRAZOLE SODIUM 40 MG/VIAL IV SCH (10:46)
[2022-03-18] MEDS: FERROUS SULFATE 325MG TABLET PO SCH ×2 (10:46→18:00)
[2022-03-18] MEDS: GABAPENTIN 100MG CAPSULE PO SCH ×3 (10:46→18:30)
[2022-03-18] MEDS: AMLODIPINE 5MG TABLET PO SCH (10:47)
[2022-03-18] MEDS: SODIUM CHLORIDE 0.9% 1,000 ML IV SCH (12:40)
[2022-03-18] MEDS: AZITHROMYCIN 500 MG in DEXT 5% WATER 250 ML IV SCH (13:36)
[2022-03-18] MEDS: CEFTRIAXONE 1,000 MG in DEXTROSE 5% WATER 50 ML IV SCH (13:36)
[2022-03-18] MEDS: HYDROCODONE/ACETAMINOPHEN 10/325MG TABLET PO PRN ×2 (13:37→22:34)
[2022-03-19] VITALS (17 sets, daily range): BP systolic 103–141; BP diastolic 52–93
[2022-03-19] MEDS: IPRATROPIUM/ALBUTEROL 0.5-3(2.5)MG/3ML NEB HHN SCH ×6 (01:19→20:22)
[2022-03-19] MEDS: SODIUM CHLORIDE 0.9% 1,000 ML IV SCH ×2 (01:43→15:20)
[2022-03-19] MEDS: BLOOD SUGAR DIAGNOSTIC STRIP TEST SCH ×4 (07:05→21:13)
[2022-03-19] MEDS: INSULIN LISPRO 100 UNITS/ML SUBCUT SCH ×4 (08:00→21:00)
[2022-03-19] MEDS: GUAIFENESIN 600MG ER TABLET PO SCH ×2 (08:13→21:24)
[2022-03-19] MEDS: DOCUSATE SODIUM 100MG CAPSULE PO SCH (08:13)
[2022-03-19] MEDS: SERTRALINE HCL 50MG TABLET PO SCH (08:25)
[2022-03-19] MEDS: AMLODIPINE 5MG TABLET PO SCH (08:25)
[2022-03-19] MEDS: FERROUS SULFATE 325MG TABLET PO SCH ×2 (08:25→18:00)
[2022-03-19] MEDS: PANTOPRAZOLE SODIUM 40 MG/VIAL IV SCH (08:25)
[2022-03-19] MEDS: GABAPENTIN 100MG CAPSULE PO SCH ×3 (08:25→17:00)
[2022-03-19] MEDS: TRIAMCINOLONE ACETONIDE 0.025% CREAM 15GM TOP SCH ×2 (08:26→17:00)
[2022-03-19] MEDS: CLOBETASOL 0.05 % CREAM 15GM TOP SCH ×2 (08:26→17:00)
[2022-03-19] MEDS: HYDROCODONE/ACETAMINOPHEN 10/325MG TABLET PO PRN ×2 (11:22→21:26)
[2022-03-19] MEDS: ONDANSETRON 4MG ODT PO PRN (11:23)
[2022-03-19] MEDS: CEFTRIAXONE 1,000 MG in DEXTROSE 5% WATER 50 ML IV SCH (13:00)
[2022-03-19] MEDS ORDERED: DILTIAZEM 125MG/125ML PMX 100 ML IV SCH ×2 (14:00→15:00)
[2022-03-19] MEDS: DILTIAZEM 125MG/125ML PMX 125 ML IV SCH (14:14)
[2022-03-19] MEDS: AZITHROMYCIN 500 MG in DEXT 5% WATER 250 ML IV SCH (14:30)
[2022-03-19 15:11] LABS: HEMATOCRIT. 32.7 % (36.0-48.0); HEMOGLOBIN. 10.6 g/dL (12.0-16.0); MEAN CORPUSCULAR HEMOGLOBIN 30.1 pg (28.0-32.0); MEAN CORPUSCULAR VOLUME 93.1 fL (81.0-99.0); PLATELET 84 x1000/uL (130-400); RED BLOOD CELL COUNT 3.51 mill/uL (4.2-5.4); RED CELL DISTRIBUTION WIDTH 15.5 % (11.6-14.6)
[2022-03-19 15:17] LABS: CHLORIDE 111 mEq/L (98-107)
[2022-03-19 17:52] LABS: PLATELET ESTIMATE DECREASED
[2022-03-20] VITALS (13 sets, daily range): BP systolic 109–152; BP diastolic 55–76
[2022-03-20] MEDS: IPRATROPIUM/ALBUTEROL 0.5-3(2.5)MG/3ML NEB HHN SCH ×7 (00:25→23:10)
[2022-03-20] MEDS: SODIUM CHLORIDE 0.9% 1,000 ML IV SCH ×2 (03:18→18:17)
[2022-03-20] MEDS: DILTIAZEM 125MG/125ML PMX 125 ML IV SCH (03:38)
[2022-03-20] MEDS: HYDROCODONE/ACETAMINOPHEN 10/325MG TABLET PO PRN ×3 (03:51→16:50)
[2022-03-20 07:02] LABS: HEMATOCRIT. 27.3 % (36.0-48.0); HEMOGLOBIN. 9.4 g/dL (12.0-16.0); MEAN CORPUSCULAR HEMOGLOBIN 31.3 pg (28.0-32.0); MEAN CORPUSCULAR VOLUME 90.9 fL (81.0-99.0); MEAN PLATELET VOLUME 8.9 fl (7.4-10.4); PLATELET 87 x1000/uL (130-400); RED CELL DISTRIBUTION WIDTH 15.1 % (11.6-14.6)
[2022-03-20] MEDS: BLOOD SUGAR DIAGNOSTIC STRIP TEST SCH ×4 (07:30→21:00)
[2022-03-20 07:46] LABS: CHLORIDE 111 mEq/L (98-107)
[2022-03-20] MEDS: INSULIN LISPRO 100 UNITS/ML SUBCUT SCH ×4 (08:00→22:14)
[2022-03-20] MEDS: FERROUS SULFATE 325MG TABLET PO SCH ×2 (08:32→18:16)
[2022-03-20] MEDS: PANTOPRAZOLE SODIUM 40 MG/VIAL IV SCH (08:32)
[2022-03-20] MEDS: SERTRALINE HCL 50MG TABLET PO SCH (08:32)
[2022-03-20] MEDS: GUAIFENESIN 600MG ER TABLET PO SCH ×2 (08:32→22:10)
[2022-03-20] MEDS: GABAPENTIN 100MG CAPSULE PO SCH ×3 (08:32→18:16)
[2022-03-20] MEDS: AMLODIPINE 5MG TABLET PO SCH (08:50)
[2022-03-20] MEDS: DOCUSATE SODIUM 100MG CAPSULE PO SCH (08:50)
[2022-03-20] MEDS: TRIAMCINOLONE ACETONIDE 0.025% CREAM 15GM TOP SCH ×2 (09:00→18:17)
[2022-03-20] MEDS: CLOBETASOL 0.05 % CREAM 15GM TOP SCH ×2 (09:00→18:18)
[2022-03-20] MEDS: CEFTRIAXONE 1,000 MG in DEXTROSE 5% WATER 50 ML IV SCH (13:30)
[2022-03-20] MEDS: AZITHROMYCIN 500 MG in DEXT 5% WATER 250 ML IV SCH (14:50)
[2022-03-20 14:51] LABS: PLATELET ESTIMATE DECREASED
[2022-03-20] MEDS: DILTIAZEM HCL 60MG TABLET PO SCH ×2 (14:51→22:11)
[2022-03-21] VITALS (13 sets, daily range): BP systolic 124–143; BP diastolic 67–106
[2022-03-21] MEDS: IPRATROPIUM/ALBUTEROL 0.5-3(2.5)MG/3ML NEB HHN SCH ×5 (03:51→20:20)
[2022-03-21] MEDS: DILTIAZEM HCL 60MG TABLET PO SCH ×3 (06:18→21:36)
[2022-03-21] MEDS: BLOOD SUGAR DIAGNOSTIC STRIP TEST SCH ×4 (06:18→21:36)
[2022-03-21 06:44] LABS: HEMATOCRIT. 30.8 % (36.0-48.0); HEMOGLOBIN. 10.1 g/dL (12.0-16.0); MEAN CORPUSCULAR HEMOGLOBIN 30.5 pg (28.0-32.0); MEAN CORPUSCULAR VOLUME 92.7 fL (81.0-99.0); MEAN PLATELET VOLUME 9.1 fl (7.4-10.4); PLATELET 84 x1000/uL (130-400); RED BLOOD CELL COUNT 3.32 mill/uL (4.2-5.4); RED CELL DISTRIBUTION WIDTH 15.5 % (11.6-14.6)
[2022-03-21] MEDS: INSULIN LISPRO 100 UNITS/ML SUBCUT SCH ×4 (08:00→21:45)
[2022-03-21] MEDS ORDERED: FUROSEMIDE 40MG/4ML VIAL IVP SCH ×2 (09:00)
[2022-03-21] MEDS ORDERED: DIATR MEGLU/DIATRIZOATE SOLN 30ML PO NR (09:00)
[2022-03-21] MEDS: DOCUSATE SODIUM 100MG CAPSULE PO SCH (09:00)
[2022-03-21] MEDS ORDERED: ACETAMINOPHEN 650MG/20.3ML UDC PO PRN (09:00)
[2022-03-21] MEDS: PANTOPRAZOLE SODIUM 40 MG/VIAL IV SCH (09:19)
[2022-03-21] MEDS: GABAPENTIN 100MG CAPSULE PO SCH ×3 (09:20→17:00)
[2022-03-21] MEDS: FERROUS SULFATE 325MG TABLET PO SCH ×2 (09:20→18:09)
[2022-03-21] MEDS: GUAIFENESIN 600MG ER TABLET PO SCH ×2 (09:20→21:36)
[2022-03-21] MEDS: SERTRALINE HCL 50MG TABLET PO SCH (09:20)
[2022-03-21] MEDS: CLOBETASOL 0.05 % CREAM 15GM TOP SCH ×2 (09:21→18:10)
[2022-03-21] MEDS: TRIAMCINOLONE ACETONIDE 0.025% CREAM 15GM TOP SCH ×2 (09:21→18:10)
[2022-03-21] MEDS: VANCOMYCIN 1000MG/20ML ORAL SOLN PO SCH ×2 (11:56→18:10)
[2022-03-21] MEDS: MAGNESIUM OXIDE 400MG TABLET PO SCH (11:57)
[2022-03-21] MEDS: SODIUM CHLORIDE 0.9% 1,000 ML IV SCH (11:57)
[2022-03-21 14:10] LABS: PLATELET ESTIMATE DECREASED
[2022-03-21 15:05] LABS: BG BASE EXCESS -4.4 mmol/L (-2.0-2.0); BG CARBOXYHEMOGLOBIN 0.1 % (0.5-1.5); BG DEOXYHEMOGLOBIN 5.5 % (0.0-5.0); BG HCO3 ACT 19.3 mmol/L (22.0-26.0); BG METHEMOGLOBIN 0.2 % (0.0-1.5); BG OXYGEN SATURATION 94.5 % (92.0-98.5); BG OXYHEMOGLOBIN 94.2 % (94.0-97.0); BG PCO2 30.8 mmHg (35.0-45.0); BG PH 7.414 (7.350-7.450); BG PO2 69.7 mmHg (75.0-100.0); BG SAMPLE SITE RIGHT BRACHIAL; BG TOTAL HEMOGLOBIN 11.4 g/dL (12.0-18.0); BG VENT MODE ROOM AIR
[2022-03-21 16:16] LABS: CREATINE KINASE 39 IU/L (26-192)
[2022-03-21 19:50] LABS: INR 1.1; PROTHROMBIN TIME 11.7 sec (9.6-11.0)
[2022-03-21 20:53] LABS: HEPATITIS B SURFACE ANTIGEN NEGATIVE
[2022-03-21] MEDS: CHOLESTYRAMINE/SUCROSE 4G POWDER PACKET PO SCH (21:36)
[2022-03-22] VITALS (30 sets, daily range): BP systolic 104–144; BP diastolic 54–75
[2022-03-22] MEDS: IPRATROPIUM/ALBUTEROL 0.5-3(2.5)MG/3ML NEB HHN SCH ×6 (00:38→21:20)
[2022-03-22] MEDS: SODIUM CHLORIDE 0.9% 1,000 ML IV SCH (05:00)
[2022-03-22] MEDS: VANCOMYCIN 1000MG/20ML ORAL SOLN PO SCH ×5 (06:00→22:01)
[2022-03-22] MEDS: DILTIAZEM HCL 60MG TABLET PO SCH ×3 (06:00→22:03)
[2022-03-22 06:08] LABS: HEMATOCRIT. 32.7 % (36.0-48.0); HEMOGLOBIN. 10.8 g/dL (12.0-16.0); MEAN CORPUSCULAR HEMOGLOBIN 29.9 pg (28.0-32.0); MEAN CORPUSCULAR VOLUME 90.2 fL (81.0-99.0); MEAN PLATELET VOLUME 8.7 fl (7.4-10.4); PLATELET 127 x1000/uL (130-400); RED BLOOD CELL COUNT 3.62 mill/uL (4.2-5.4); RED CELL DISTRIBUTION WIDTH 15.5 % (11.6-14.6)
[2022-03-22 06:15] LABS: INR 1.1; PROTHROMBIN TIME 11.5 sec (9.6-11.0)
[2022-03-22 06:20] LABS: CHLORIDE 109 mEq/L (98-107)
[2022-03-22] MEDS ORDERED: TALC 3 GM VIAL IX SCH ×3 (06:45→11:15)
[2022-03-22] MEDS: BLOOD SUGAR DIAGNOSTIC STRIP TEST SCH ×4 (07:30→21:37)
[2022-03-22 07:41] LABS: PLATELET ESTIMATE SLIGHTLY DECREASED
[2022-03-22] MEDS ORDERED: BLOOD SUGAR DIAGNOSTIC STRIP TEST NR (08:00)
[2022-03-22] MEDS ORDERED: CEFAZOLIN 2,000 MG in DEXT 5% WATER 100 ML IV NR (08:00)
[2022-03-22] MEDS: FERROUS SULFATE 325MG TABLET PO SCH ×2 (08:00→18:46)
[2022-03-22] MEDS: CHOLESTYRAMINE/SUCROSE 4G POWDER PACKET PO SCH ×2 (08:00→18:46)
[2022-03-22] MEDS ORDERED: POLYMYXIN B SULFATE 500000 UNITS/VIAL ONE (08:01)
[2022-03-22] MEDS ORDERED: SKIN ADHESIVE 0.7 GM EA TOP ONE (08:01)
[2022-03-22] MEDS ORDERED: TETRACAINE/BENZOCAINE/BUTAMBEN 20 GM SPRAY MM ONE (08:01)
[2022-03-22] MEDS ORDERED: LIDOCAINE HCL/EPINEPHRINE 1%-EPI 1:100,000 20 ML VIAL ONE (08:02)
[2022-03-22] MEDS: DOCUSATE SODIUM 100MG CAPSULE PO SCH (09:00)
[2022-03-22] MEDS: TRIAMCINOLONE ACETONIDE 0.025% CREAM 15GM TOP SCH ×2 (09:00→18:46)
[2022-03-22] MEDS: MAGNESIUM OXIDE 400MG TABLET PO SCH (09:00)
[2022-03-22] MEDS: SERTRALINE HCL 50MG TABLET PO SCH (09:00)
[2022-03-22] MEDS: CLOBETASOL 0.05 % CREAM 15GM TOP SCH ×2 (09:00→18:46)
[2022-03-22] MEDS: CITRIC ACID/SODIUM CITRATE SOLN 30ML UDC PO SCH ×3 (09:00→18:46)
[2022-03-22] MEDS: GUAIFENESIN 600MG ER TABLET PO SCH ×2 (09:00→21:37)
[2022-03-22] MEDS: GABAPENTIN 100MG CAPSULE PO SCH ×4 (09:00→22:01)
[2022-03-22] MEDS: PANTOPRAZOLE SODIUM 40 MG/VIAL IV SCH (09:09)
[2022-03-22] MEDS: INSULIN LISPRO 100 UNITS/ML SUBCUT SCH ×5 (09:10→22:18)
[2022-03-22] MEDS ORDERED: ROCURONIUM BROMIDE 10MG/ML VIAL 5ML IV ONE (10:34)
[2022-03-22] MEDS ORDERED: CALCIUM CHLORIDE 1GM/10ML SYR IV ONE (10:49)
[2022-03-22] MEDS ORDERED: BUPIVACAINE HCL/PF 0.5% (5MG/ML) 30ML ONE (11:16)
[2022-03-22] MEDS ORDERED: CEFAZOLIN SODIUM 1000MG/VIAL ONE (12:09)
[2022-03-22] MEDS ORDERED: DEXAMETHASONE 4MG/ML 1ML VIAL ONE (12:09)
[2022-03-22] MEDS ORDERED: ONDANSETRON HCL 4MG/2ML INJ IV PRN ×2 (12:30)
[2022-03-22] MEDS ORDERED: HYDROMORPHONE HCL/PF 2MG/ML CPJ IV PRN (12:30)
[2022-03-22] MEDS ORDERED: LABETALOL 5MG/ML SYR 20 MG/4 ML SYRINGE IV PRN (12:30)
[2022-03-22] MEDS ORDERED: MEPERIDINE HCL/PF 25MG/ML CPJ IV PRN (12:30)
[2022-03-22 13:06] LABS: BG DEOXYHEMOGLOBIN 1.3 % (0.0-5.0); BG FRACTION INSPIRED OXYGEN 60; BG METHEMOGLOBIN 0.5 % (0.0-1.5); BG OXYGEN SATURATION 98.7 % (92.0-98.5); BG OXYHEMOGLOBIN 98.2 % (94.0-97.0); BG PCO2 34.6 mmHg (35.0-45.0); BG PH 7.334 (7.350-7.450); BG PO2 154.6 mmHg (75.0-100.0); BG SAMPLE SITE LEFT RADIAL; BG TOTAL HEMOGLOBIN 11.8 g/dL (12.0-18.0); BG VENT MODE MASK - SIMPLE
[2022-03-22] MEDS ORDERED: CEFAZOLIN 1000MG PREMIX 50 ML IV SCH (14:00)
[2022-03-22] MEDS ORDERED: NALOXONE HCL 0.4MG/ML VIAL IV PRN (14:15)
[2022-03-22] MEDS: DEXT 5%/0.45% NACL 1000ML 1,000 ML IV SCH (16:21)
[2022-03-22] MEDS: CEFAZOLIN 1000MG PREMIX 50 ML IV SCH (18:47)
[2022-03-22] MEDS: DIPHENHYDRAMINE 25MG CAPSULE PO PRN (22:03)
[2022-03-23] VITALS (74 sets, daily range): BP systolic 57–145; BP diastolic 46–79
[2022-03-23] MEDS: IPRATROPIUM/ALBUTEROL 0.5-3(2.5)MG/3ML NEB HHN SCH ×9 (01:32→20:37)
[2022-03-23] MEDS: CEFAZOLIN 1000MG PREMIX 50 ML IV SCH ×3 (02:04→13:56)
[2022-03-23] MEDS: VANCOMYCIN 1000MG/20ML ORAL SOLN PO SCH ×4 (02:05→18:38)
[2022-03-23] MEDS: SODIUM CHLORIDE 0.9% 1,000 ML IV SCH (02:05)
[2022-03-23] MEDS: DILTIAZEM HCL 60MG TABLET PO SCH ×3 (06:00→21:38)
[2022-03-23 06:23] LABS: HEMATOCRIT. 30.8 % (36.0-48.0); HEMOGLOBIN. 10.1 g/dL (12.0-16.0); MEAN CORPUSCULAR VOLUME 91.4 fL (81.0-99.0); MEAN PLATELET VOLUME 8.9 fl (7.4-10.4); PLATELET 108 x1000/uL (130-400); RED BLOOD CELL COUNT 3.37 mill/uL (4.2-5.4); RED CELL DISTRIBUTION WIDTH 15.5 % (11.6-14.6)
[2022-03-23 07:26] LABS: PHOSPHORUS 2.6 mg/dL (2.5-4.9)
[2022-03-23] MEDS: BLOOD SUGAR DIAGNOSTIC STRIP TEST SCH ×4 (08:37→21:38)
[2022-03-23] MEDS: FERROUS SULFATE 325MG TABLET PO SCH ×2 (08:57→18:38)
[2022-03-23] MEDS: DOCUSATE SODIUM 100MG CAPSULE PO SCH (08:57)
[2022-03-23] MEDS: SERTRALINE HCL 50MG TABLET PO SCH (08:57)
[2022-03-23] MEDS: GABAPENTIN 100MG CAPSULE PO SCH ×3 (08:57→18:38)
[2022-03-23] MEDS: GUAIFENESIN 600MG ER TABLET PO SCH (08:57)
[2022-03-23] MEDS: FAMOTIDINE 20MG/2ML VIAL IV SCH (08:57)
[2022-03-23] MEDS: PANTOPRAZOLE SODIUM 40 MG/VIAL IV SCH (08:58)
[2022-03-23] MEDS: CITRIC ACID/SODIUM CITRATE SOLN 30ML UDC PO SCH ×3 (08:58→18:38)
[2022-03-23] MEDS: INSULIN LISPRO 100 UNITS/ML SUBCUT SCH ×4 (08:59→21:40)
[2022-03-23 09:03] LABS: HEMATOCRIT. 29.2 % (36.0-48.0); HEMOGLOBIN. 9.8 g/dL (12.0-16.0); MEAN CORPUSCULAR HEMOGLOBIN 30.2 pg (28.0-32.0); MEAN CORPUSCULAR VOLUME 90.1 fL (81.0-99.0); MEAN PLATELET VOLUME 8.7 fl (7.4-10.4); PLATELET 104 x1000/uL (130-400); RED BLOOD CELL COUNT 3.24 mill/uL (4.2-5.4)
[2022-03-23] MEDS: OXYCODONE HCL/ACETAMINOPHEN 5/325MG TABLET PO PRN ×2 (09:20→21:53)
[2022-03-23 09:28] LABS: PLATELET ESTIMATE DECREASED
[2022-03-23 09:45] LABS: PLATELET ESTIMATE DECREASED
[2022-03-23] MEDS: TRIAMCINOLONE ACETONIDE 0.025% CREAM 15GM TOP SCH ×2 (10:23→18:45)
[2022-03-23] MEDS: CLOBETASOL 0.05 % CREAM 15GM TOP SCH ×2 (10:23→18:45)
[2022-03-23] MEDS: DEXT 5%/0.45% NACL 1000ML 1,000 ML IV SCH (10:25)
[2022-03-23] MEDS: CHOLESTYRAMINE/SUCROSE 4G POWDER PACKET PO SCH ×2 (10:42→18:39)
[2022-03-23] MEDS: MAGNESIUM OXIDE 400MG TABLET PO SCH (10:42)
[2022-03-23] MEDS: MORPHINE SULFATE 2 MG/ML CPJ (NOT FOR IM USE) IV PRN (13:41)
[2022-03-23] MEDS: DIPHENHYDRAMINE 25MG CAPSULE PO PRN (21:53)
[2022-03-24] VITALS (53 sets, daily range): BP systolic 91–128; BP diastolic 49–77
[2022-03-24] MEDS: IPRATROPIUM/ALBUTEROL 0.5-3(2.5)MG/3ML NEB HHN SCH ×6 (00:27→21:08)
[2022-03-24] MEDS: VANCOMYCIN 1000MG/20ML ORAL SOLN PO SCH ×5 (00:48→23:02)
[2022-03-24 05:59] LABS: HEMATOCRIT. 28.6 % (36.0-48.0); HEMOGLOBIN. 9.6 g/dL (12.0-16.0); MEAN CORPUSCULAR VOLUME 89.1 fL (81.0-99.0); MEAN PLATELET VOLUME 8.5 fl (7.4-10.4); PLATELET 103 x1000/uL (130-400); RED BLOOD CELL COUNT 3.21 mill/uL (4.2-5.4); RED CELL DISTRIBUTION WIDTH 15.2 % (11.6-14.6)
[2022-03-24] MEDS: DEXT 5%/0.45% NACL 1000ML 1,000 ML IV SCH (06:00)
[2022-03-24] MEDS: DILTIAZEM HCL 60MG TABLET PO SCH ×3 (06:01→22:23)
[2022-03-24 07:29] LABS: PLATELET ESTIMATE DECREASED
[2022-03-24] MEDS: BLOOD SUGAR DIAGNOSTIC STRIP TEST SCH ×4 (08:33→21:00)
[2022-03-24] MEDS: GABAPENTIN 100MG CAPSULE PO SCH ×3 (08:38→17:41)
[2022-03-24] MEDS: CITRIC ACID/SODIUM CITRATE SOLN 30ML UDC PO SCH ×3 (08:38→17:40)
[2022-03-24] MEDS: PANTOPRAZOLE SODIUM 40 MG/VIAL IV SCH (08:38)
[2022-03-24] MEDS: CHOLESTYRAMINE/SUCROSE 4G POWDER PACKET PO SCH ×2 (08:38→17:41)
[2022-03-24] MEDS: OXYCODONE HCL/ACETAMINOPHEN 5/325MG TABLET PO PRN (08:39)
[2022-03-24] MEDS: SERTRALINE HCL 50MG TABLET PO SCH (08:40)
[2022-03-24] MEDS: DOCUSATE SODIUM 100MG CAPSULE PO SCH (08:40)
[2022-03-24] MEDS: FERROUS SULFATE 325MG TABLET PO SCH ×2 (08:40→17:41)
[2022-03-24] MEDS: INSULIN LISPRO 100 UNITS/ML SUBCUT SCH ×4 (08:41→22:23)
[2022-03-24] MEDS: FAMOTIDINE 20MG/2ML VIAL IV SCH (08:41)
[2022-03-24] MEDS: MAGNESIUM OXIDE 400MG TABLET PO SCH (08:41)
[2022-03-24] MEDS: CLOBETASOL 0.05 % CREAM 15GM TOP SCH ×2 (08:42→17:41)
[2022-03-24] MEDS: TRIAMCINOLONE ACETONIDE 0.025% CREAM 15GM TOP SCH ×2 (08:42→17:40)
[2022-03-24 08:59] LABS: HEMATOCRIT. 28.9 % (36.0-48.0); HEMOGLOBIN. 9.5 g/dL (12.0-16.0); MEAN CORPUSCULAR HEMOGLOBIN 29.5 pg (28.0-32.0); MEAN CORPUSCULAR VOLUME 89.8 fL (81.0-99.0); MEAN PLATELET VOLUME 8.6 fl (7.4-10.4); PLATELET 105 x1000/uL (130-400); RED BLOOD CELL COUNT 3.22 mill/uL (4.2-5.4); RED CELL DISTRIBUTION WIDTH 15.1 % (11.6-14.6)
[2022-03-24 09:38] LABS: PLATELET ESTIMATE DECREASED
[2022-03-24] MEDS: INSULIN GLARGINE 100 UNITS/ML SUBCUT SCH (11:07)
[2022-03-24] MEDS: MORPHINE SULFATE 2 MG/ML CPJ (NOT FOR IM USE) IV PRN (23:03)
[2022-03-25] VITALS (43 sets, daily range): BP systolic 88–151; BP diastolic 47–77
[2022-03-25] MEDS: IPRATROPIUM/ALBUTEROL 0.5-3(2.5)MG/3ML NEB HHN SCH ×6 (01:05→20:26)
[2022-03-25] MEDS: DILTIAZEM HCL 60MG TABLET PO SCH ×3 (06:34→21:49)
[2022-03-25] MEDS: VANCOMYCIN 1000MG/20ML ORAL SOLN PO SCH ×3 (06:35→18:28)
[2022-03-25 06:38] LABS: HEMATOCRIT. 32.5 % (36.0-48.0); HEMOGLOBIN. 10.8 g/dL (12.0-16.0); MEAN CORPUSCULAR HEMOGLOBIN 30.1 pg (28.0-32.0); MEAN CORPUSCULAR VOLUME 90.3 fL (81.0-99.0); MEAN PLATELET VOLUME 8.2 fl (7.4-10.4); PLATELET 105 x1000/uL (130-400); RED BLOOD CELL COUNT 3.61 mill/uL (4.2-5.4); RED CELL DISTRIBUTION WIDTH 15.3 % (11.6-14.6)
[2022-03-25] MEDS: THROAT LOZENGES-BENZOCAINE/MENTH/CETYLPYRD CL LOZENGES MM PRN ×2 (06:39→13:13)
[2022-03-25 06:56] LABS: PHOSPHORUS 2.3 mg/dL (2.5-4.9)
[2022-03-25 07:25] LABS: PLATELET ESTIMATE DECREASED
[2022-03-25] MEDS: BLOOD SUGAR DIAGNOSTIC STRIP TEST SCH ×4 (08:00→21:00)
[2022-03-25] MEDS: FERROUS SULFATE 325MG TABLET PO SCH ×2 (08:22→18:27)
[2022-03-25] MEDS: MAGNESIUM OXIDE 400MG TABLET PO SCH (08:22)
[2022-03-25] MEDS: GABAPENTIN 100MG CAPSULE PO SCH ×3 (08:23→18:33)
[2022-03-25] MEDS: FAMOTIDINE 20MG/2ML VIAL IV SCH (08:23)
[2022-03-25] MEDS: SERTRALINE HCL 50MG TABLET PO SCH (08:23)
[2022-03-25] MEDS: PANTOPRAZOLE SODIUM 40 MG/VIAL IV SCH (08:23)
[2022-03-25] MEDS: CITRIC ACID/SODIUM CITRATE SOLN 30ML UDC PO SCH ×2 (08:23→18:26)
[2022-03-25] MEDS: OXYCODONE HCL/ACETAMINOPHEN 5/325MG TABLET PO PRN (08:23)
[2022-03-25] MEDS: CHOLESTYRAMINE/SUCROSE 4G POWDER PACKET PO SCH ×2 (08:23→18:27)
[2022-03-25] MEDS: DOCUSATE SODIUM 100MG CAPSULE PO SCH (08:23)
[2022-03-25] MEDS: INSULIN LISPRO 100 UNITS/ML SUBCUT SCH ×4 (08:24→21:49)
[2022-03-25] MEDS: TRIAMCINOLONE ACETONIDE 0.025% CREAM 15GM TOP SCH ×2 (08:24→18:28)
[2022-03-25] MEDS: CLOBETASOL 0.05 % CREAM 15GM TOP SCH ×2 (08:27→18:29)
[2022-03-25] MEDS ORDERED: SODIUM PHOS,M-BASIC-D-BASIC 15 MM in DEXT 5% WATER 245 ML IV ONE (10:00)
[2022-03-25] MEDS: FUROSEMIDE 40MG/4ML VIAL IVP SCH ×2 (10:45→18:26)
[2022-03-25] MEDS: INSULIN GLARGINE 100 UNITS/ML SUBCUT SCH (10:46)
[2022-03-26] VITALS (12 sets, daily range): BP systolic 111–131; BP diastolic 58–69
[2022-03-26] MEDS: IPRATROPIUM/ALBUTEROL 0.5-3(2.5)MG/3ML NEB HHN SCH ×5 (00:15→19:50)
[2022-03-26] MEDS: VANCOMYCIN 1000MG/20ML ORAL SOLN PO SCH ×4 (00:23→17:46)
[2022-03-26 06:01] LABS: HEMATOCRIT. 34.5 % (36.0-48.0); HEMOGLOBIN. 11.6 g/dL (12.0-16.0); MEAN CORPUSCULAR HEMOGLOBIN 29.9 pg (28.0-32.0); MEAN CORPUSCULAR VOLUME 88.9 fL (81.0-99.0); MEAN PLATELET VOLUME 8.4 fl (7.4-10.4); PLATELET 114 x1000/uL (130-400); RED BLOOD CELL COUNT 3.89 mill/uL (4.2-5.4); RED CELL DISTRIBUTION WIDTH 15.3 % (11.6-14.6)
[2022-03-26] MEDS: DILTIAZEM HCL 60MG TABLET PO SCH ×3 (06:07→21:01)
[2022-03-26 06:25] LABS: PHOSPHORUS 3.7 mg/dL (2.5-4.9)
[2022-03-26] MEDS: BLOOD SUGAR DIAGNOSTIC STRIP TEST SCH ×4 (06:50→21:26)
[2022-03-26] MEDS: INSULIN LISPRO 100 UNITS/ML SUBCUT SCH ×4 (07:30→21:40)
[2022-03-26 07:36] LABS: PLATELET ESTIMATE DECREASED
[2022-03-26] MEDS: DOCUSATE SODIUM 100MG CAPSULE PO SCH (09:00)
[2022-03-26] MEDS: CLOBETASOL 0.05 % CREAM 15GM TOP SCH ×2 (09:00→17:46)
[2022-03-26] MEDS: MAGNESIUM OXIDE 400MG TABLET PO SCH (09:58)
[2022-03-26] MEDS: CITRIC ACID/SODIUM CITRATE SOLN 30ML UDC PO SCH ×2 (09:58→17:45)
[2022-03-26] MEDS: CHOLESTYRAMINE/SUCROSE 4G POWDER PACKET PO SCH ×2 (09:58→17:45)
[2022-03-26] MEDS: FUROSEMIDE 40MG/4ML VIAL IVP SCH ×2 (09:58→17:47)
[2022-03-26] MEDS: FAMOTIDINE 20MG TABLET PO SCH (09:58)
[2022-03-26] MEDS: TRIAMCINOLONE ACETONIDE 0.025% CREAM 15GM TOP SCH ×2 (09:59→17:45)
[2022-03-26] MEDS: SERTRALINE HCL 50MG TABLET PO SCH (09:59)
[2022-03-26] MEDS: FERROUS SULFATE 325MG TABLET PO SCH ×2 (09:59→17:45)
[2022-03-26] MEDS: GABAPENTIN 100MG CAPSULE PO SCH ×3 (09:59→17:45)
[2022-03-26] MEDS: PANTOPRAZOLE SODIUM 40 MG/VIAL IV SCH (10:03)
[2022-03-26] MEDS: INSULIN GLARGINE 100 UNITS/ML SUBCUT SCH (11:34)
[2022-03-27] VITALS (12 sets, daily range): BP systolic 118–151; BP diastolic 57–74
[2022-03-27] MEDS: VANCOMYCIN 1000MG/20ML ORAL SOLN PO SCH ×4 (00:24→21:38)
[2022-03-27] MEDS: IPRATROPIUM/ALBUTEROL 0.5-3(2.5)MG/3ML NEB HHN SCH ×6 (00:25→21:20)
[2022-03-27] MEDS: DILTIAZEM HCL 60MG TABLET PO SCH ×3 (06:00→21:40)
[2022-03-27] MEDS: BLOOD SUGAR DIAGNOSTIC STRIP TEST SCH ×4 (06:50→21:22)
[2022-03-27 07:13] LABS: HEMATOCRIT. 34.9 % (36.0-48.0); HEMOGLOBIN. 11.5 g/dL (12.0-16.0); MEAN CORPUSCULAR HEMOGLOBIN 29.9 pg (28.0-32.0); MEAN CORPUSCULAR VOLUME 90.7 fL (81.0-99.0); MEAN PLATELET VOLUME 8.9 fl (7.4-10.4); PLATELET 88 x1000/uL (130-400); RED BLOOD CELL COUNT 3.85 mill/uL (4.2-5.4); RED CELL DISTRIBUTION WIDTH 15.4 % (11.6-14.6)
[2022-03-27] MEDS: DOCUSATE SODIUM 100MG CAPSULE PO SCH (07:44)
[2022-03-27 08:11] LABS: CHLORIDE 104 mEq/L (98-107)
[2022-03-27] MEDS: MAGNESIUM OXIDE 400MG TABLET PO SCH (09:00)
[2022-03-27] MEDS: GABAPENTIN 100MG CAPSULE PO SCH ×3 (09:17→17:43)
[2022-03-27] MEDS: INSULIN LISPRO 100 UNITS/ML SUBCUT SCH ×4 (09:17→21:37)
[2022-03-27] MEDS: SERTRALINE HCL 50MG TABLET PO SCH (09:17)
[2022-03-27] MEDS: FAMOTIDINE 20MG TABLET PO SCH (09:17)
[2022-03-27] MEDS: FERROUS SULFATE 325MG TABLET PO SCH ×2 (09:17→17:43)
[2022-03-27] MEDS: PANTOPRAZOLE SODIUM 40 MG/VIAL IV SCH (09:18)
[2022-03-27] MEDS: CITRIC ACID/SODIUM CITRATE SOLN 30ML UDC PO SCH ×2 (09:18→17:42)
[2022-03-27] MEDS: CLOBETASOL 0.05 % CREAM 15GM TOP SCH ×2 (09:18→17:43)
[2022-03-27] MEDS: FUROSEMIDE 40MG/4ML VIAL IVP SCH ×3 (09:18→17:42)
[2022-03-27] MEDS: TRIAMCINOLONE ACETONIDE 0.025% CREAM 15GM TOP SCH ×2 (09:18→17:44)
[2022-03-27] MEDS: CHOLESTYRAMINE/SUCROSE 4G POWDER PACKET PO SCH ×2 (09:18→17:42)
[2022-03-27] MEDS: INSULIN GLARGINE 100 UNITS/ML SUBCUT SCH (11:12)
[2022-03-27 18:27] LABS: PLATELET ESTIMATE DECREASED
[2022-03-28] VITALS (13 sets, daily range): BP systolic 112–139; BP diastolic 53–78
[2022-03-28] MEDS: IPRATROPIUM/ALBUTEROL 0.5-3(2.5)MG/3ML NEB HHN SCH ×5 (01:01→20:46)
[2022-03-28] MEDS: DILTIAZEM HCL 60MG TABLET PO SCH ×3 (05:19→21:34)
[2022-03-28] MEDS: VANCOMYCIN 1000MG/20ML ORAL SOLN PO SCH ×4 (05:20→17:27)
[2022-03-28 06:27] LABS: HEMATOCRIT. 35.9 % (36.0-48.0); MEAN CORPUSCULAR HEMOGLOBIN 30.1 pg (28.0-32.0); MEAN CORPUSCULAR VOLUME 89.9 fL (81.0-99.0); MEAN PLATELET VOLUME 9.1 fl (7.4-10.4); PLATELET 96 x1000/uL (130-400); RED BLOOD CELL COUNT 3.99 mill/uL (4.2-5.4); RED CELL DISTRIBUTION WIDTH 15.3 % (11.6-14.6)
[2022-03-28] MEDS: INSULIN LISPRO 100 UNITS/ML SUBCUT SCH ×4 (07:30→21:31)
[2022-03-28] MEDS: BLOOD SUGAR DIAGNOSTIC STRIP TEST SCH ×4 (07:30→21:24)
[2022-03-28] MEDS: CITRIC ACID/SODIUM CITRATE SOLN 30ML UDC PO SCH ×2 (08:52→17:24)
[2022-03-28] MEDS: PANTOPRAZOLE SODIUM 40 MG/VIAL IV SCH (08:52)
[2022-03-28] MEDS: FUROSEMIDE 40MG/4ML VIAL IVP SCH ×3 (08:53→17:24)
[2022-03-28] MEDS: CHOLESTYRAMINE/SUCROSE 4G POWDER PACKET PO SCH ×2 (08:53→17:24)
[2022-03-28] MEDS: FERROUS SULFATE 325MG TABLET PO SCH ×2 (08:53→17:24)
[2022-03-28] MEDS: GABAPENTIN 100MG CAPSULE PO SCH ×3 (08:54→17:26)
[2022-03-28] MEDS: MAGNESIUM OXIDE 400MG TABLET PO SCH (08:55)
[2022-03-28] MEDS: DOCUSATE SODIUM 100MG CAPSULE PO SCH (08:55)
[2022-03-28] MEDS: SERTRALINE HCL 50MG TABLET PO SCH (08:57)
[2022-03-28] MEDS: INSULIN GLARGINE 100 UNITS/ML SUBCUT SCH (08:58)
[2022-03-28 09:35] LABS: PLATELET ESTIMATE DECREASED
[2022-03-28] MEDS: TRIAMCINOLONE ACETONIDE 0.025% CREAM 15GM TOP SCH ×2 (10:51→17:28)
[2022-03-28] MEDS: CLOBETASOL 0.05 % CREAM 15GM TOP SCH ×2 (10:53→17:28)
[2022-03-29] VITALS (18 sets, daily range): BP systolic 94–130; BP diastolic 49–70
[2022-03-29] MEDS: VANCOMYCIN 1000MG/20ML ORAL SOLN PO SCH ×4 (00:15→17:56)
[2022-03-29] MEDS: IPRATROPIUM/ALBUTEROL 0.5-3(2.5)MG/3ML NEB HHN SCH ×6 (00:47→20:36)
[2022-03-29 05:25] LABS: HEMATOCRIT. 37.3 % (36.0-48.0); HEMOGLOBIN. 12.3 g/dL (12.0-16.0); MEAN CORPUSCULAR VOLUME 91.1 fL (81.0-99.0); PLATELET 97 x1000/uL (130-400); RED CELL DISTRIBUTION WIDTH 15.6 % (11.6-14.6)
[2022-03-29] MEDS: DILTIAZEM HCL 60MG TABLET PO SCH ×3 (05:28→22:38)
[2022-03-29] MEDS: BLOOD SUGAR DIAGNOSTIC STRIP TEST SCH ×4 (07:30→21:48)
[2022-03-29] MEDS ORDERED: LIDOCAINE HCL 1% 20ML VIAL (Pyxis) INJ ONE (08:28)
[2022-03-29 09:03] LABS: PLATELET ESTIMATE DECREASED
[2022-03-29] MEDS: INSULIN GLARGINE 100 UNITS/ML SUBCUT SCH (09:22)
[2022-03-29] MEDS: CITRIC ACID/SODIUM CITRATE SOLN 30ML UDC PO SCH (09:23)
[2022-03-29] MEDS: SERTRALINE HCL 50MG TABLET PO SCH (09:23)
[2022-03-29] MEDS: GABAPENTIN 100MG CAPSULE PO SCH ×3 (09:23→17:54)
[2022-03-29] MEDS: INSULIN LISPRO 100 UNITS/ML SUBCUT SCH ×4 (09:23→21:49)
[2022-03-29] MEDS: CHOLESTYRAMINE/SUCROSE 4G POWDER PACKET PO SCH ×2 (09:23→17:54)
[2022-03-29] MEDS: FERROUS SULFATE 325MG TABLET PO SCH ×2 (09:23→17:54)
[2022-03-29] MEDS: FUROSEMIDE 40MG/4ML VIAL IVP SCH ×3 (09:23→17:54)
[2022-03-29] MEDS: MAGNESIUM OXIDE 400MG TABLET PO SCH (09:23)
[2022-03-29] MEDS: PANTOPRAZOLE SODIUM 40 MG/VIAL IV SCH (09:23)
[2022-03-29] MEDS: TRIAMCINOLONE ACETONIDE 0.025% CREAM 15GM TOP SCH ×2 (09:26→17:00)
[2022-03-29] MEDS: CLOBETASOL 0.05 % CREAM 15GM TOP SCH ×2 (09:27→17:00)
[2022-03-30] VITALS (16 sets, daily range): BP systolic 97–126; BP diastolic 56–71
[2022-03-30] MEDS: VANCOMYCIN 1000MG/20ML ORAL SOLN PO SCH ×4 (00:48→18:24)
[2022-03-30] MEDS: IPRATROPIUM/ALBUTEROL 0.5-3(2.5)MG/3ML NEB HHN SCH ×7 (00:51→20:00)
[2022-03-30] MEDS: DILTIAZEM HCL 60MG TABLET PO SCH ×3 (06:09→22:39)
[2022-03-30] MEDS: BLOOD SUGAR DIAGNOSTIC STRIP TEST SCH ×4 (06:09→22:36)
[2022-03-30 06:19] LABS: HEMATOCRIT. 33.3 % (36.0-48.0); HEMOGLOBIN. 11.3 g/dL (12.0-16.0); MEAN CORPUSCULAR HEMOGLOBIN 30.7 pg (28.0-32.0); MEAN CORPUSCULAR VOLUME 90.1 fL (81.0-99.0); PLATELET 101 x1000/uL (130-400); RED BLOOD CELL COUNT 3.69 mill/uL (4.2-5.4); RED CELL DISTRIBUTION WIDTH 15.5 % (11.6-14.6)
[2022-03-30 07:37] LABS: PLATELET ESTIMATE DECREASED
[2022-03-30] MEDS ORDERED: LIDOCAINE HCL 1% 20ML VIAL (Pyxis) INJ ONE (08:35)
[2022-03-30] MEDS: FUROSEMIDE 40MG/4ML VIAL IVP SCH ×3 (09:23→18:16)
[2022-03-30] MEDS: PANTOPRAZOLE SODIUM 40 MG/VIAL IV SCH (09:23)
[2022-03-30] MEDS: GABAPENTIN 100MG CAPSULE PO SCH ×3 (09:23→17:00)
[2022-03-30] MEDS: MAGNESIUM OXIDE 400MG TABLET PO SCH (09:23)
[2022-03-30] MEDS: SERTRALINE HCL 50MG TABLET PO SCH (09:24)
[2022-03-30] MEDS: FERROUS SULFATE 325MG TABLET PO SCH ×2 (09:24→18:21)
[2022-03-30] MEDS: INSULIN LISPRO 100 UNITS/ML SUBCUT SCH ×4 (09:25→22:55)
[2022-03-30] MEDS: FOLIC ACID/VITAMIN B COMP W-C TABLET PO SCH (09:28)
[2022-03-30] MEDS: CHOLESTYRAMINE/SUCROSE 4G POWDER PACKET PO SCH ×2 (09:38→18:16)
[2022-03-30] MEDS: INSULIN GLARGINE 100 UNITS/ML SUBCUT SCH (09:48)
[2022-03-30] MEDS: TRIAMCINOLONE ACETONIDE 0.025% CREAM 15GM TOP SCH ×2 (09:50→17:00)
[2022-03-30] MEDS: CLOBETASOL 0.05 % CREAM 15GM TOP SCH ×2 (09:50→17:00)
[2022-03-30] MEDS: THROAT LOZENGES-BENZOCAINE/MENTH/CETYLPYRD CL LOZENGES MM PRN (13:23)
[2022-03-30] MEDS: LACTULOSE 20G/30ML UDC PO SCH (22:39)
[2022-03-31] VITALS (19 sets, daily range): BP systolic 112–145; BP diastolic 57–71
[2022-03-31] MEDS: VANCOMYCIN 1000MG/20ML ORAL SOLN PO SCH ×4 (00:53→18:22)
[2022-03-31] MEDS: IPRATROPIUM/ALBUTEROL 0.5-3(2.5)MG/3ML NEB HHN SCH ×6 (03:27→20:31)
[2022-03-31 06:15] LABS: HEMATOCRIT. 34.8 % (36.0-48.0); HEMOGLOBIN. 11.3 g/dL (12.0-16.0); MEAN CORPUSCULAR HEMOGLOBIN 29.7 pg (28.0-32.0); MEAN CORPUSCULAR VOLUME 91.2 fL (81.0-99.0); MEAN PLATELET VOLUME 9.1 fl (7.4-10.4); PLATELET 84 x1000/uL (130-400); RED BLOOD CELL COUNT 3.81 mill/uL (4.2-5.4); RED CELL DISTRIBUTION WIDTH 16.3 % (11.6-14.6)
[2022-03-31] MEDS: DILTIAZEM HCL 60MG TABLET PO SCH ×3 (06:46→21:49)
[2022-03-31] MEDS: LACTULOSE 20G/30ML UDC PO SCH ×3 (06:49→21:49)
[2022-03-31] MEDS: BLOOD SUGAR DIAGNOSTIC STRIP TEST SCH ×4 (06:50→21:43)
[2022-03-31] MEDS: MAGNESIUM OXIDE 400MG TABLET PO SCH (08:40)
[2022-03-31] MEDS: METOLAZONE 2.5MG TABLET PO SCH (08:40)
[2022-03-31] MEDS: FERROUS SULFATE 325MG TABLET PO SCH ×2 (08:40→18:20)
[2022-03-31] MEDS: SERTRALINE HCL 50MG TABLET PO SCH (08:40)
[2022-03-31] MEDS: GABAPENTIN 100MG CAPSULE PO SCH ×3 (08:40→18:22)
[2022-03-31] MEDS: FOLIC ACID/VITAMIN B COMP W-C TABLET PO SCH (08:40)
[2022-03-31] MEDS: CHOLESTYRAMINE/SUCROSE 4G POWDER PACKET PO SCH ×2 (08:40→18:22)
[2022-03-31 08:41] LABS: PLATELET ESTIMATE DECREASED
[2022-03-31] MEDS: FUROSEMIDE 40MG/4ML VIAL IVP SCH ×2 (08:41→18:22)
[2022-03-31] MEDS: PANTOPRAZOLE SODIUM 40 MG/VIAL IV SCH (08:41)
[2022-03-31] MEDS: INSULIN LISPRO 100 UNITS/ML SUBCUT SCH ×4 (08:42→21:52)
[2022-03-31] MEDS: THROAT LOZENGES-BENZOCAINE/MENTH/CETYLPYRD CL LOZENGES MM PRN (10:05)
[2022-03-31] MEDS: CLOBETASOL 0.05 % CREAM 15GM TOP SCH ×2 (11:20→18:22)
[2022-03-31] MEDS: INSULIN GLARGINE 100 UNITS/ML SUBCUT SCH (11:21)
[2022-03-31] MEDS: TRIAMCINOLONE ACETONIDE 0.025% OINT 15GM TOP SCH ×2 (12:04→18:23)
[2022-04-01] VITALS (15 sets, daily range): BP systolic 104–126; BP diastolic 50–90
[2022-04-01] MEDS ORDERED: ZOLPIDEM TARTRATE 5MG TABLET PO NR
[2022-04-01] MEDS: VANCOMYCIN 1000MG/20ML ORAL SOLN PO SCH ×4 (00:40→17:15)
[2022-04-01] MEDS: IPRATROPIUM/ALBUTEROL 0.5-3(2.5)MG/3ML NEB HHN SCH ×6 (00:49→20:52)
[2022-04-01] MEDS: BLOOD SUGAR DIAGNOSTIC STRIP TEST SCH ×4 (06:20→20:57)
[2022-04-01] MEDS: DILTIAZEM HCL 60MG TABLET PO SCH ×3 (06:20→22:52)
[2022-04-01] MEDS: LACTULOSE 20G/30ML UDC PO SCH ×3 (06:20→22:51)
[2022-04-01 06:41] LABS: HEMATOCRIT. 37.3 % (36.0-48.0); HEMOGLOBIN. 12.2 g/dL (12.0-16.0); MEAN CORPUSCULAR HEMOGLOBIN 30.1 pg (28.0-32.0); MEAN CORPUSCULAR VOLUME 92.3 fL (81.0-99.0); MEAN PLATELET VOLUME 9.3 fl (7.4-10.4); PLATELET 71 x1000/uL (130-400); RED BLOOD CELL COUNT 4.05 mill/uL (4.2-5.4); RED CELL DISTRIBUTION WIDTH 16.1 % (11.6-14.6)
[2022-04-01] MEDS: PANTOPRAZOLE SODIUM 40 MG/VIAL IV SCH (08:25)
[2022-04-01] MEDS: MAGNESIUM OXIDE 400MG TABLET PO SCH (08:26)
[2022-04-01] MEDS: FOLIC ACID/VITAMIN B COMP W-C TABLET PO SCH (08:26)
[2022-04-01] MEDS: INSULIN LISPRO 100 UNITS/ML SUBCUT SCH ×4 (08:26→21:15)
[2022-04-01 08:32] LABS: PLATELET ESTIMATE DECREASED
[2022-04-01] MEDS: SERTRALINE HCL 50MG TABLET PO SCH (08:45)
[2022-04-01] MEDS: CHOLESTYRAMINE/SUCROSE 4G POWDER PACKET PO SCH ×2 (08:45→17:09)
[2022-04-01] MEDS: FERROUS SULFATE 325MG TABLET PO SCH ×2 (08:45→17:09)
[2022-04-01] MEDS: CLOBETASOL 0.05 % CREAM 15GM TOP SCH ×2 (08:46→15:54)
[2022-04-01] MEDS: TRIAMCINOLONE ACETONIDE 0.025% OINT 15GM TOP SCH ×2 (08:46→15:54)
[2022-04-01] MEDS: METOLAZONE 2.5MG TABLET PO SCH (08:50)
[2022-04-01] MEDS ORDERED: SODIUM POLYSTYRENE SULFONATE 15 G/60 ML BOT PO SCH (09:00)
[2022-04-01] MEDS ORDERED: FUROSEMIDE 40MG/4ML VIAL IVP SCH (09:00)
[2022-04-01] MEDS: INSULIN GLARGINE 100 UNITS/ML SUBCUT SCH (10:21)
[2022-04-01] MEDS: THROAT LOZENGES-BENZOCAINE/MENTH/CETYLPYRD CL LOZENGES MM PRN (15:54)
[2022-04-02] VITALS (12 sets, daily range): BP systolic 90–128; BP diastolic 53–75
[2022-04-02] MEDS: VANCOMYCIN 1000MG/20ML ORAL SOLN PO SCH ×4 (00:22→17:25)
[2022-04-02] MEDS: IPRATROPIUM/ALBUTEROL 0.5-3(2.5)MG/3ML NEB HHN SCH ×4 (00:50→21:13)
[2022-04-02] MEDS: DILTIAZEM HCL 60MG TABLET PO SCH ×3 (05:51→21:40)
[2022-04-02] MEDS: LACTULOSE 20G/30ML UDC PO SCH ×3 (05:51→21:47)
[2022-04-02] MEDS: BLOOD SUGAR DIAGNOSTIC STRIP TEST SCH ×4 (06:38→21:40)
[2022-04-02] MEDS: INSULIN LISPRO 100 UNITS/ML SUBCUT SCH ×4 (09:18→21:00)
[2022-04-02] MEDS: CHOLESTYRAMINE/SUCROSE 4G POWDER PACKET PO SCH ×2 (09:19→17:24)
[2022-04-02] MEDS: PANTOPRAZOLE SODIUM 40 MG/VIAL IV SCH (09:19)
[2022-04-02] MEDS: SERTRALINE HCL 50MG TABLET PO SCH (09:19)
[2022-04-02] MEDS: DEXT 5%/0.9% NACL 1,000 ML IV SCH (09:20)
[2022-04-02] MEDS: FERROUS SULFATE 325MG TABLET PO SCH ×2 (09:20→17:24)
[2022-04-02] MEDS: INSULIN GLARGINE 100 UNITS/ML SUBCUT SCH (09:21)
[2022-04-02] MEDS: CLOBETASOL 0.05 % CREAM 15GM TOP SCH ×2 (09:23→17:13)
[2022-04-02] MEDS: TRIAMCINOLONE ACETONIDE 0.025% OINT 15GM TOP SCH ×2 (09:24→17:13)
[2022-04-02] MEDS: FOLIC ACID/VITAMIN B COMP W-C TABLET PO SCH (09:31)
[2022-04-02] MEDS: MAGNESIUM OXIDE 400MG TABLET PO SCH (09:31)
[2022-04-02 10:34] LABS: HEMATOCRIT. 34.7 % (36.0-48.0); HEMOGLOBIN. 11.4 g/dL (12.0-16.0); MEAN CORPUSCULAR HEMOGLOBIN 30.6 pg (28.0-32.0); MEAN CORPUSCULAR VOLUME 92.8 fL (81.0-99.0); MEAN PLATELET VOLUME 9.9 fl (7.4-10.4); PLATELET 68 x1000/uL (130-400); RED BLOOD CELL COUNT 3.74 mill/uL (4.2-5.4); RED CELL DISTRIBUTION WIDTH 16.6 % (11.6-14.6)
[2022-04-02 10:58] LABS: PLATELET ESTIMATE DECREASED
[2022-04-02 13:39] LABS: BG BASE EXCESS -3.9 mmol/L (-2.0-2.0); BG CARBOXYHEMOGLOBIN 0.5 % (0.5-1.5); BG DEOXYHEMOGLOBIN 10.1 % (0.0-5.0); BG FRACTION INSPIRED OXYGEN 21; BG HCO3 ACT 18.5 mmol/L (22.0-26.0); BG METHEMOGLOBIN 0.7 % (0.0-1.5); BG OXYGEN SATURATION 89.8 % (92.0-98.5); BG OXYHEMOGLOBIN 88.7 % (94.0-97.0); BG PCO2 26.3 mmHg (35.0-45.0); BG PH 7.464 (7.350-7.450); BG PO2 60.7 mmHg (75.0-100.0); BG SAMPLE SITE LEFT RADIAL; BG TOTAL HEMOGLOBIN 12.1 g/dL (12.0-18.0); BG VENT MODE ROOM AIR
[2022-04-02] MEDS ORDERED: ALBUMIN HUMAN 12.5G/250ML (5%) IV NR (17:00)
[2022-04-03] VITALS (17 sets, daily range): BP systolic 82–124; BP diastolic 41–68
[2022-04-03] MEDS: DEXT 5%/0.9% NACL 1,000 ML IV SCH ×2 (01:42→18:03)
[2022-04-03] MEDS: IPRATROPIUM/ALBUTEROL 0.5-3(2.5)MG/3ML NEB HHN SCH ×6 (02:15→21:40)
[2022-04-03] MEDS: DILTIAZEM HCL 60MG TABLET PO SCH (05:05)
[2022-04-03] MEDS: LACTULOSE 20G/30ML UDC PO SCH ×3 (05:12→22:37)
[2022-04-03] MEDS: INSULIN LISPRO 100 UNITS/ML SUBCUT SCH ×4 (07:30→20:51)
[2022-04-03] MEDS: BLOOD SUGAR DIAGNOSTIC STRIP TEST SCH ×4 (07:40→20:40)
[2022-04-03] MEDS: MAGNESIUM OXIDE 400MG TABLET PO SCH (09:08)
[2022-04-03] MEDS: FOLIC ACID/VITAMIN B COMP W-C TABLET PO SCH (09:08)
[2022-04-03] MEDS: FERROUS SULFATE 325MG TABLET PO SCH ×2 (09:08→18:00)
[2022-04-03] MEDS: CLOBETASOL 0.05 % CREAM 15GM TOP SCH ×2 (09:09→18:01)
[2022-04-03] MEDS: SERTRALINE HCL 50MG TABLET PO SCH (09:09)
[2022-04-03] MEDS: INSULIN GLARGINE 100 UNITS/ML SUBCUT SCH (09:10)
[2022-04-03] MEDS: TRIAMCINOLONE ACETONIDE 0.025% OINT 15GM TOP SCH ×2 (09:11→17:00)
[2022-04-03] MEDS: PANTOPRAZOLE SODIUM 40 MG/VIAL IV SCH ×2 (09:11→18:01)
[2022-04-03] MEDS: CHOLESTYRAMINE/SUCROSE 4G POWDER PACKET PO SCH ×2 (09:54→18:01)
[2022-04-03 10:56] LABS: HEMATOCRIT. 31.1 % (36.0-48.0); MEAN CORPUSCULAR HEMOGLOBIN 30.7 pg (28.0-32.0); MEAN CORPUSCULAR VOLUME 95.8 fL (81.0-99.0); MEAN PLATELET VOLUME 9.8 fl (7.4-10.4); RED BLOOD CELL COUNT 3.25 mill/uL (4.2-5.4)
[2022-04-03 11:01] LABS: PLATELET 41 x1000/uL (130-400)
[2022-04-03] MEDS: DILTIAZEM HCL 30MG TABLET PO SCH ×2 (14:00→20:17)
[2022-04-03 14:45] LABS: PLATELET ESTIMATE MARKEDLY DECREASED
[2022-04-03] MEDS: METOCLOPRAMIDE HCL 10MG/2ML VIAL IV SCH (18:32)
[2022-04-03] MEDS ORDERED: ALBUMIN HUMAN 25GM/500ML (5%) IV NR (19:30)
[2022-04-03] MEDS: OCTREOTIDE 1,000 MCG in SODIUM CHLORIDE 0.9% 98 ML IV SCH (22:38)
[2022-04-04] VITALS (15 sets, daily range): BP systolic 88–106; BP diastolic 36–67
[2022-04-04] MEDS: METOCLOPRAMIDE HCL 10MG/2ML VIAL IV SCH ×3 (00:46→12:00)
[2022-04-04] MEDS: IPRATROPIUM/ALBUTEROL 0.5-3(2.5)MG/3ML NEB HHN SCH ×6 (00:52→20:50)
[2022-04-04] MEDS: DILTIAZEM HCL 30MG TABLET PO SCH ×3 (05:34→22:00)
[2022-04-04] MEDS: LACTULOSE 20G/30ML UDC PO SCH ×3 (06:13→23:02)
[2022-04-04] MEDS: BLOOD SUGAR DIAGNOSTIC STRIP TEST SCH ×4 (06:14→21:00)
[2022-04-04] MEDS: INSULIN LISPRO 100 UNITS/ML SUBCUT SCH ×4 (06:18→21:00)
[2022-04-04] MEDS: ONDANSETRON 4MG ODT PO PRN (09:01)
[2022-04-04] MEDS: MAGNESIUM OXIDE 400MG TABLET PO SCH (09:01)
[2022-04-04] MEDS: FOLIC ACID/VITAMIN B COMP W-C TABLET PO SCH (09:01)
[2022-04-04] MEDS: PANTOPRAZOLE SODIUM 40 MG/VIAL IV SCH ×2 (09:01→20:17)
[2022-04-04] MEDS: SERTRALINE HCL 50MG TABLET PO SCH (09:02)
[2022-04-04] MEDS: CHOLESTYRAMINE/SUCROSE 4G POWDER PACKET PO SCH ×2 (09:02→18:00)
[2022-04-04] MEDS: FERROUS SULFATE 325MG TABLET PO SCH ×2 (09:02→18:03)
[2022-04-04] MEDS: CLOBETASOL 0.05 % CREAM 15GM TOP SCH ×2 (09:03→18:04)
[2022-04-04] MEDS: TRIAMCINOLONE ACETONIDE 0.025% OINT 15GM TOP SCH ×2 (09:04→18:05)
[2022-04-04] MEDS: INSULIN GLARGINE 100 UNITS/ML SUBCUT SCH (09:06)
[2022-04-04] MEDS: DEXT 5%/0.9% NACL 1,000 ML IV SCH (10:14)
[2022-04-04 11:11] LABS: HEMATOCRIT. 26.6 % (36.0-48.0); HEMOGLOBIN. 8.6 g/dL (12.0-16.0); MEAN CORPUSCULAR HEMOGLOBIN 31.5 pg (28.0-32.0); MEAN CORPUSCULAR VOLUME 97.5 fL (81.0-99.0); MEAN PLATELET VOLUME 9.6 fl (7.4-10.4); RED BLOOD CELL COUNT 2.73 mill/uL (4.2-5.4); RED CELL DISTRIBUTION WIDTH 18.2 % (11.6-14.6)
[2022-04-04 11:17] LABS: INR 2.7
[2022-04-04 13:25] LABS: PLATELET ESTIMATE MARKEDLY DECREASED
[2022-04-04 13:26] LABS: PLATELET 30 x1000/uL (130-400)
[2022-04-04] MEDS: OCTREOTIDE 1,000 MCG in SODIUM CHLORIDE 0.9% 98 ML IV SCH (14:25)
[2022-04-04] MEDS: MEROPENEM 500 MG in SODIUM CHLORIDE 0.9% 50 ML IV SCH (18:03)
[2022-04-04] MEDS: MIDODRINE HCL 5MG TABLET PO SCH (18:05)
[2022-04-04] MEDS ORDERED: ALBUMIN HUMAN 25GM/500ML (5%) IV NR (20:00)
[2022-04-04] MEDS ORDERED: LINEZOLID 600 MG PREMIX 300 ML IV SCH (21:00)
[2022-04-04] MEDS: DEXTROSE 50% WATER 50ML SYRINGE IV PRN (22:04)
[2022-04-04] MEDS: PHYTONADIONE 10MG/ML AMP SUBCUT SCH (22:14)
[2022-04-05] VITALS (25 sets, daily range): BP systolic 40–132; BP diastolic 22–80
[2022-04-05] MEDS: IPRATROPIUM/ALBUTEROL 0.5-3(2.5)MG/3ML NEB HHN SCH ×4 (00:45→21:50)
[2022-04-05] MEDS: BLOOD SUGAR DIAGNOSTIC STRIP TEST SCH ×4 (01:21→17:26)
[2022-04-05] MEDS: MEROPENEM 500 MG in SODIUM CHLORIDE 0.9% 50 ML IV SCH ×3 (03:26→22:04)
[2022-04-05] MEDS: DEXT 5%/0.9% NACL 1,000 ML IV SCH (03:26)
[2022-04-05] MEDS: DILTIAZEM HCL 30MG TABLET PO SCH (05:03)
[2022-04-05] MEDS: LACTULOSE 20G/30ML UDC PO SCH ×3 (05:08→22:25)
[2022-04-05] MEDS: INSULIN LISPRO 100 UNITS/ML SUBCUT SCH ×4 (06:57→21:00)
[2022-04-05] MEDS: FERROUS SULFATE 325MG TABLET PO SCH ×2 (07:37→09:39)
[2022-04-05] MEDS: CHOLESTYRAMINE/SUCROSE 4G POWDER PACKET PO SCH ×2 (07:37→17:52)
[2022-04-05] MEDS ORDERED: FUROSEMIDE 40MG/4ML VIAL IVP NR ×2 (08:15→19:30)
[2022-04-05] MEDS ORDERED: SUCCINYLCHOLINE CHLORIDE 200MG/10ML IV ONE (08:36)
[2022-04-05] MEDS ORDERED: ETOMIDATE 2MG/ML 10ML VIAL IV ONE (08:36)
[2022-04-05] MEDS: TRIAMCINOLONE ACETONIDE 0.025% OINT 15GM TOP SCH ×2 (09:00→17:00)
[2022-04-05] MEDS: PANTOPRAZOLE SODIUM 40 MG/VIAL IV SCH ×2 (09:38→22:26)
[2022-04-05] MEDS: SERTRALINE HCL 50MG TABLET PO SCH (09:38)
[2022-04-05] MEDS: PHYTONADIONE 10MG/ML AMP SUBCUT SCH (09:39)
[2022-04-05] MEDS: MIDODRINE HCL 5MG TABLET PO SCH ×3 (09:39→17:52)
[2022-04-05] MEDS: FOLIC ACID/VITAMIN B COMP W-C TABLET PO SCH (09:41)
[2022-04-05] MEDS: MAGNESIUM OXIDE 400MG TABLET PO SCH (09:41)
[2022-04-05] MEDS: CLOBETASOL 0.05 % CREAM 15GM TOP SCH ×2 (09:43→17:54)
[2022-04-05] MEDS: INSULIN GLARGINE 100 UNITS/ML SUBCUT SCH (09:45)
[2022-04-05] MEDS: OCTREOTIDE 1,000 MCG in SODIUM CHLORIDE 0.9% 98 ML IV SCH (10:39)
[2022-04-05] MEDS: DEXTROSE 50% WATER 50ML SYRINGE IV PRN (13:45)
[2022-04-05 13:56] LABS: PHOSPHORUS 4.7 mg/dL (2.5-4.9)
[2022-04-05 13:57] LABS: HEMATOCRIT. 26.4 % (36.0-48.0); HEMOGLOBIN. 8.6 g/dL (12.0-16.0); MEAN CORPUSCULAR HEMOGLOBIN 30.8 pg (28.0-32.0); MEAN CORPUSCULAR VOLUME 94.5 fL (81.0-99.0); MEAN PLATELET VOLUME 10.7 fl (7.4-10.4); RED BLOOD CELL COUNT 2.79 mill/uL (4.2-5.4); RED CELL DISTRIBUTION WIDTH 19.8 % (11.6-14.6)
[2022-04-05 14:13] LABS: PLATELET 28 x1000/uL (130-400)
[2022-04-05 14:51] LABS: INR 2.2; PROTHROMBIN TIME 22.1 sec (9.6-11.0)
[2022-04-05] MEDS ORDERED: VANCOMYCIN 1.5GM PMX (XELLIA) 300 ML IV SCH (15:00)
[2022-04-05] MEDS ORDERED: VANCOMYCIN 1500MG in DEXTROSE 5% WATER 250ML IV NR (16:00)
[2022-04-05 16:58] LABS: PLATELET ESTIMATE MARKEDLY DECREASED
[2022-04-05 18:56] LABS: BG BASE EXCESS -10.2 mmol/L (-2.0-2.0); BG CARBOXYHEMOGLOBIN 0.1 % (0.5-1.5); BG DEOXYHEMOGLOBIN 4.9 % (0.0-5.0); BG FRACTION INSPIRED OXYGEN 100; BG HCO3 ACT 14.1 mmol/L (22.0-26.0); BG METHEMOGLOBIN 0.6 % (0.0-1.5); BG OXYGEN SATURATION 95.1 % (92.0-98.5); BG OXYHEMOGLOBIN 94.4 % (94.0-97.0); BG PCO2 26.2 mmHg (35.0-45.0); BG PH 7.349 (7.350-7.450); BG PO2 85.5 mmHg (75.0-100.0); BG SAMPLE SITE RIGHT BRACHIAL; BG TOTAL HEMOGLOBIN 9.6 g/dL (12.0-18.0); BG VENT MODE MASK - NRB
[2022-04-05] MEDS ORDERED: NOREPINEPHRINE 8 MG in DEXT 5% WATER 242 ML IV PRN (19:30)
[2022-04-05] MEDS ORDERED: SODIUM BICARBONATE 8.4% 1 MEQ/ML 50ML SYR IV NR ×2 (19:30→19:45)
[2022-04-05] MEDS ORDERED: SODIUM BICARBONATE 100 MEQ in DEXTROSE 5% WATER 1,000 ML IV SCH (21:00)
[2022-04-05] MEDS ORDERED: ALBUMIN HUMAN 25GM/500ML (5%) IV NR (21:00)
[2022-04-05] MEDS: RIFAXIMIN 550 MG TABLET NG SCH (22:26)
[2022-04-05] MEDS ORDERED: DILTIAZEM 125MG/125ML PMX 125 ML IV PRN (23:00)
[2022-04-06] VITALS (68 sets, daily range): BP systolic 46–139; BP diastolic 21–83
[2022-04-06] MEDS: IPRATROPIUM/ALBUTEROL 0.5-3(2.5)MG/3ML NEB HHN SCH ×7 (00:40→16:00)
[2022-04-06 01:07] LABS: BG BASE EXCESS -9.6 mmol/L (-2.0-2.0); BG CARBOXYHEMOGLOBIN 0.3 % (0.5-1.5); BG DEOXYHEMOGLOBIN 12.3 % (0.0-5.0); BG FRACTION INSPIRED OXYGEN 100; BG HCO3 ACT 16.1 mmol/L (22.0-26.0); BG METHEMOGLOBIN 0.6 % (0.0-1.5); BG OXYGEN SATURATION 87.6 % (92.0-98.5); BG OXYHEMOGLOBIN 86.8 % (94.0-97.0); BG PCO2 34.8 mmHg (35.0-45.0); BG PH 7.284 (7.350-7.450); BG PO2 63.6 mmHg (75.0-100.0); BG SAMPLE SITE LEFT BRACHIAL; BG TOTAL HEMOGLOBIN 11.2 g/dL (12.0-18.0); BG TOTAL RESPIRATORY RATE 30 b/min; BG VENT MODE VENT - AC
[2022-04-06] MEDS: DEXTROSE 50% WATER 50ML SYRINGE IV PRN ×2 (01:30→03:03)
[2022-04-06] MEDS ORDERED: AMIODARONE HCL 150 MG in DEXT 5% WATER 97 ML IV SCH (01:30)
[2022-04-06] MEDS ORDERED: AMIODARONE HCL 900 MG in DEXT 5% WATER 482 ML IV PRN (01:30)
[2022-04-06] MEDS: NOREPINEPHRINE 32 MG in DEXT 5% WATER 218 ML IV PRN ×3 (01:32→13:53)
[2022-04-06 01:47] LABS: HEMATOCRIT 30.4 % (36.0-48.0); HEMOGLOBIN 9.7 g/dL (12.0-16.0); MEAN CORPUSCULAR HEMOGLOBIN 31.8 pg (28.0-32.0); MEAN CORPUSCULAR VOLUME 99.9 fL (81.0-99.0); RED BLOOD CELL COUNT 3.04 mill/uL (4.2-5.4); RED CELL DISTRIBUTION WIDTH 20.7 % (11.6-14.6)
[2022-04-06 02:09] LABS: PLATELET 29 x1000/uL (130-400)
[2022-04-06] MEDS: PROPOFOL 10MG/ML 100ML 100 ML IV PRN ×2 (02:14→12:46)
[2022-04-06] MEDS: PHENYLEPHRINE 100 MG in DEXT 5% WATER 240 ML IV PRN ×2 (02:25→12:46)
[2022-04-06] MEDS: BLOOD SUGAR DIAGNOSTIC STRIP TEST SCH ×3 (05:09→17:53)
[2022-04-06 05:50] LABS: HEMATOCRIT. 31.7 % (36.0-48.0); HEMOGLOBIN. 9.2 g/dL (12.0-16.0); MEAN CORPUSCULAR HEMOGLOBIN 31.4 pg (28.0-32.0); MEAN CORPUSCULAR VOLUME 108.3 fL (81.0-99.0); MEAN PLATELET VOLUME 11.2 fl (7.4-10.4); RED BLOOD CELL COUNT 2.92 mill/uL (4.2-5.4); RED CELL DISTRIBUTION WIDTH 21.3 % (11.6-14.6)
[2022-04-06 05:52] LABS: INR 2.8; PROTHROMBIN TIME 27.7 sec (9.6-11.0)
[2022-04-06] MEDS: INSULIN LISPRO 100 UNITS/ML SUBCUT SCH ×3 (06:30→16:30)
[2022-04-06 06:31] LABS: PLATELET 22 x1000/uL (130-400)
[2022-04-06] MEDS: FERROUS SULFATE 325MG TABLET PO SCH ×2 (07:00→17:00)
[2022-04-06 07:19] LABS: NUCLEATED RED BLOOD CELLS 6 /100 WBC; PLATELET ESTIMATE MARKEDLY DECREASED
[2022-04-06] MEDS: LACTULOSE 20G/30ML UDC PO SCH ×2 (07:51→13:26)
[2022-04-06 08:52] LABS: BG BASE EXCESS -18.1 mmol/L (-2.0-2.0); BG CARBOXYHEMOGLOBIN 0.4 % (0.5-1.5); BG DEOXYHEMOGLOBIN 8.4 % (0.0-5.0); BG FRACTION INSPIRED OXYGEN 100; BG HCO3 ACT 9.6 mmol/L (22.0-26.0); BG METHEMOGLOBIN 0.7 % (0.0-1.5); BG OXYGEN SATURATION 91.5 % (92.0-98.5); BG OXYHEMOGLOBIN 90.5 % (94.0-97.0); BG PCO2 29.4 mmHg (35.0-45.0); BG PH 7.133 (7.350-7.450); BG PO2 76.6 mmHg (75.0-100.0); BG SAMPLE SITE RIGHT RADIAL; BG TOTAL HEMOGLOBIN 8.9 g/dL (12.0-18.0); BG VENT MODE VENT - AC
[2022-04-06] MEDS: MIDODRINE HCL 5MG TABLET PO SCH ×3 (09:00→17:00)
[2022-04-06] MEDS: MAGNESIUM OXIDE 400MG TABLET PO SCH (09:00)
[2022-04-06] MEDS: RIFAXIMIN 550 MG TABLET NG SCH (09:00)
[2022-04-06] MEDS: FOLIC ACID/VITAMIN B COMP W-C TABLET PO SCH (09:00)
[2022-04-06] MEDS: INSULIN GLARGINE 100 UNITS/ML SUBCUT SCH (09:01)
[2022-04-06] MEDS: DOPAMINE 800MG PREMIX (DOUBLE) 250 ML IV PRN ×2 (09:08→17:55)
[2022-04-06] MEDS: PHYTONADIONE 10MG/ML AMP SUBCUT SCH (09:09)
[2022-04-06] MEDS: OCTREOTIDE 1,000 MCG in SODIUM CHLORIDE 0.9% 98 ML IV SCH (09:16)
[2022-04-06] MEDS: PANTOPRAZOLE SODIUM 40 MG/VIAL IV SCH (09:37)
[2022-04-06] MEDS ORDERED: VASOPRESSIN 20 UNIT in SODIUM CHLORIDE 0.9% 99 ML IV PRN (09:45)
[2022-04-06] MEDS: TRIAMCINOLONE ACETONIDE 0.025% OINT 15GM TOP SCH ×2 (09:47→17:12)
[2022-04-06] MEDS ORDERED: SODIUM BICARBONATE 8.4% 1 MEQ/ML 50ML SYR IV NR (10:15)
[2022-04-06] MEDS: MEROPENEM 500 MG in SODIUM CHLORIDE 0.9% 50 ML IV SCH (11:04)
[2022-04-06] MEDS ORDERED: SODIUM BICARBONATE 150 MEQ in DEXTROSE 5% WATER 1,000 ML IV SCH (11:30)
[2022-04-06] MEDS ORDERED: INSULIN REGULAR (HUMULIN R) 300UNITS/3ML VIAL IV NR (15:54)
[2022-04-06] MEDS ORDERED: DEXTROSE 50% WATER 50ML SYRINGE IV NR (15:54)
== END 2022-04-06 18:47 | DRG 720 ==
LOC: ER 11:56 → EDBEDREQ 13:41 → ENRESERV 13:55 → 5EST 14:21 → EDBEDREQSVC 14:30 → EDBEDREQ 14:30 → EDBEDREQTM 14:30 → CVICU 03-22 15:23 → 5EST 03-25 16:20 → MICUNO 04-05 22:56
PROVIDERS: ADMIT Internal Medicine; ATTEND Internal Medicine
PROC: 0W993ZZ Drainage of Right Pleural Cavity, Percutaneous Approach (ICD-10-PCS; principal; 2022-03-17)
PROC: 3E0L4GC Introduction of Other Therapeutic Substance into Pleural Cavity, Percutaneous Endoscopic Approach (ICD-10-PCS; 2022-03-22)
PROC: 0W9930Z Drainage of Right Pleural Cavity with Drainage Device, Percutaneous Approach (ICD-10-PCS; 2022-03-22)
PROC: 0BJ08ZZ Inspection of Tracheobronchial Tree, Via Natural or Artificial Opening Endoscopic (ICD-10-PCS; 2022-03-22)
PROC: 02HV33Z Insertion of Infusion Device into Superior Vena Cava, Percutaneous Approach (ICD-10-PCS; 2022-03-29)
PROC: B548ZZA Ultrasonography of Superior Vena Cava, Guidance (ICD-10-PCS; 2022-03-29)
PROC: 00JU3ZZ Inspection of Spinal Canal, Percutaneous Approach (ICD-10-PCS; 2022-03-30)
PROC: 30233R1 Transfusion of Nonautologous Platelets into Peripheral Vein, Percutaneous Approach (ICD-10-PCS; 2022-04-03)
PROC: 5A1935Z Respiratory Ventilation, Less than 24 Consecutive Hours (ICD-10-PCS; 2022-04-05)
PROC: 0BH17EZ Insertion of Endotracheal Airway into Trachea, Via Natural or Artificial Opening (ICD-10-PCS; 2022-04-05)
DX: A41.9 Sepsis, unspecified organism (principal); D65 Disseminated intravascular coagulation [defibrination syndrome]; K76.7 Hepatorenal syndrome; J96.00 Acute respiratory failure, unspecified whether with hypoxia or hypercapnia; R65.21 Severe sepsis with septic shock; D61.818 Other pancytopenia; J91.8 Pleural effusion in other conditions classified elsewhere; E43 Unspecified severe protein-calorie malnutrition; Z66 Do not resuscitate; G82.50 Quadriplegia, unspecified; G93.41 Metabolic encephalopathy; K72.90 Hepatic failure, unspecified without coma; I47.1 Supraventricular tachycardia; K76.6 Portal hypertension; J18.9 Pneumonia, unspecified organism; N17.9 Acute kidney failure, unspecified; R18.8 Other ascites; E87.1 Hypo-osmolality and hyponatremia; I11.0 Hypertensive heart disease with heart failure; I50.9 Heart failure, unspecified; E11.9 Type 2 diabetes mellitus without complications; E78.00 Pure hypercholesterolemia, unspecified; J45.909 Unspecified asthma, uncomplicated; E78.5 Hyperlipidemia, unspecified; K74.60 Unspecified cirrhosis of liver; L40.0 Psoriasis vulgaris; N20.0 Calculus of kidney; D25.9 Leiomyoma of uterus, unspecified; N39.0 Urinary tract infection, site not specified; B18.2 Chronic viral hepatitis C; D75.839 Thrombocytosis, unspecified; E66.9 Obesity, unspecified; E83.42 Hypomagnesemia; I25.10 Atherosclerotic heart disease of native coronary artery without angina pectoris; I48.91 Unspecified atrial fibrillation; I49.3 Ventricular premature depolarization; K52.9 Noninfective gastroenteritis and colitis, unspecified; E87.5 Hyperkalemia; R16.1 Splenomegaly, not elsewhere classified; G40.909 Epilepsy, unspecified, not intractable, without status epilepticus; R53.81 Other malaise; R26.89 Other abnormalities of gait and mobility; Z20.822 Contact with and (suspected) exposure to COVID-19; R13.12 Dysphagia, oropharyngeal phase; Z74.01 Bed confinement status; Z79.84 Long term (current) use of oral hypoglycemic drugs; Z79.899 Other long term (current) drug therapy; Z86.16 Personal history of COVID-19; Z87.891 Personal history of nicotine dependence; Z68.32 Body mass index [BMI] 32.0-32.9, adult
CPT/HCPCS: 31500; 32555; 36415; 36600; 62328; 71045; 71250; 74018; 74176; 76705; 76770; 76937; 80048; 80053; 80076; 80305; 80320; 81003; 82040; 82140; 82270; 82375; 82550; 82805; 82962; 83036; 83605; 83615; 83735; 83880; 84100; 84145; 84478; 84484; 85018; 85025; 85027; 86140; 86705; 86709; 86803; 86850; 86900; 87070; 87075; 87106; 87116; 87340; 87426; 87529; 87804; 88108; 88312; 93005; 93306; 93970; 94002; 94003; 94640; 97110; 97162; 97164; 97166; 97530; 97535; 99285; C1725; C1751; C9113; J0282; J0330; J0456; J0690; J0696; J1100; J1265; J1815; J1940; J2020; J2185; J2270; J2354; J2370; J2704; J2765; J3370; J3430; J3490; J7030; J7040; J7042; J7050; J7060; J7070; P9034; P9041; P9047; Q0162; Q0163; Q9963; G0480